=== PATIENT | male | born 1965 | race Caucasian/White ===

== ENCOUNTER 2019-07-19 17:16 | Inpatient (IN) | payer OTHER ==
[~2019-07-19] VITALS: Ht 182.9 cm; Wt 218.0 kg
[~2019-07-19 17:16] MED LIST: ACCUPRIL40 MG PO; ASPIRIN325 PO; AZITHROMYCIN 2250 MG PO; CARVEDILOL25 MG PO; CATAPRES0.2 MG PO; CATAPRESS3 TRANSDERM; CEFUROXIME250 MG PO; CLONIDINE0.1 PO; COUMADIN 2 MG TA2 M1 PO; COUMADIN 5 MG TA5 M1 PO; DEMADEX20 MG PO; DIGOXIN250 MCG PO; DULERA 200 MCG/13 GM INH; DUONEB 2.5-0.5 M3 ML INH; LASIX 20 MG TAB20 MG PO; LISINOPRIL20 MG PO; LOPRESSOR50 PO; MAXITROL EYE O3.5 GM OPHTHALMIC; METOPROLOL TAR100 MG PO; NORCO 10-325 T1 EACH PO; NORCO 5-325 TA1 EACH PO; PREDNISONE 10 M10 MG PO; PULMICORT0.5 MG/2 M INH; SYNTHROID100 MC1 PO; SYNTHROID100 MCG PO; VALACYCLOVIR1000 MG PO; XANAX1 MG PO; ZOLOFT 50 MG TA50 M1 PO
[2019-07-19 17:17] VITALS: BP 129/66
[2019-07-19 18:07] LABS: BE(vivo) -0.3 mmol/L (-2 to +3); PO2 77.7 mmHg (80.0-100.0); pH 7.373 (7.360-7.450); sO2 95.2 % (92.0-98.0)
[2019-07-19 18:09] LABS: HEMATOCRIT 30.8 % (42.0-52.0); HEMOGLOBIN 9.6 gm/dL (14.0-18.0); MCH 26.5 pg (26.0-34.0); MCHC 31.1 g/dL (28.0-37.0); MCV 85.3 fL (80.0-100.0); PLATELET COUNT 126 thou/uL (150-400); RBC 3.61 mil/uL (4.50-6.00); RDW 25.1 % (10.5-14.5); WBC 5.2 thou/uL (4.0-11.0)
[2019-07-19 18:19] LABS: ANION GAP 3 mmol/L (7-16); BUN 14 mg/dL (7-18); CALCIUM 8.9 mg/dL (8.5-10.1); CHLORIDE 106 mmol/L (98-107); CO2 32 mmol/L (21-32); CREATININE 0.9 mg/dL (0.7-1.3); GLUCOSE 120 mg/dL (74-106); POTASSIUM 4.5 mmol/L (3.5-5.1); SODIUM 141 mmol/L (136-145)
[2019-07-19 18:25] LABS: PROTIME 122.1 Seconds (9.3-11.4)
[2019-07-19 18:29] LABS: ALBUMIN 2.8 g/dL (3.4-5.0); SGOT 13 U/L (15-37); SGPT 17 U/L (30-65); TOTAL BILIRUBIN 0.9 mg/dL (<0.1-1.0); TOTAL PROTEIN 6.4 g/dL (6.4-8.2); TROPONIN-I <0.06 ng/mL (<0.06)
[2019-07-19 18:31] LABS: INR 11.9
[2019-07-19 18:41] LABS: ABSOLUTE NEUTROPHILS 4.5 thou/uL (1.4-8.2); ANISOCYTOSIS 1+
[2019-07-19 20:35] LABS: CHOLESTEROL 169 mg/dL (<200); HDL CHOLESTEROL 33 mg/dL (>40); LDL CHOLESTEROL 121 mg/dL (<100); TC:HDL 5.1 Ratio (Not establshd); TRIGLYCERIDE 77 mg/dL (<150); VLDL 15 mg/dL (<40)
[2019-07-19 21:55] VITALS: BP 106/83
[2019-07-19 22:16] VITALS: BP 106/83
[2019-07-19 22:50] VITALS: BP 147/95
[2019-07-20] VITALS (35 sets, daily range): BP systolic 94–150; BP diastolic 55–97
[2019-07-20 03:48] LABS: BE(vivo) -2.4 mmol/L (-2 to +3); HCO3 26.9 mmol/L (22.0-26.0); PCO2 68.7 mmHg (35.0-45.0); PO2 90.5 mmHg (80.0-100.0); sO2 94.9 % (92.0-98.0)
--- NOTE | 2019-07-20 04:15 | NUR ---
FOUND PATIENT ON CPAP SETTINGS WHILE ON V60. PATIENT WAS IN DISTRESS ONCE MOVED TO THE FLOOR, HE WAS PLACED ON BIPAP 18/8 RATE 10 AND 45%. CALL WAS PLACED TO ME THAT THEY HAD TO INCREASE THE FIO2 TO 80% AND WERE TRYING TO WEAN HIM DOWN. I FOUND THE PATIENT ON 60% AND GOT AN ABG AND THE FINDINGS PROMPTED A PULM CONSULT TO DR OVALLES WHO WANTS THE PATIENT MOVED TO THE ICU. WILL TRANSPORT PATIENT ON BIPAP TO THE UNIT AND CONTINUE TO MONITOR HIS STATUS.
--- NOTE | 2019-07-20 04:40 | NUR ---
Pt arrived ICU accompanied with 3 west staffs and RETAIL PRODUCT ADVISOR. He appears indistress. He is very tachypnic, RR in 40's. O2 sat >90% noted. ED staff is on the way to intubate him.
--- NOTE | 2019-07-20 05:20 | NUR ---
Pt is well tricia intubation procedure. CXR obtained. Waiting for confirmation of ETT placement. Rt will obtain ABG shortly.
--- NOTE | 2019-07-20 05:30 | NUR ---
Pt is hypothermic noted, warm blanket applied.
[2019-07-20 05:58] LABS: HEMATOCRIT 35.5 % (42.0-52.0); HEMOGLOBIN 10.8 gm/dL (14.0-18.0); MCH 26.3 pg (26.0-34.0); MCHC 30.5 g/dL (28.0-37.0); MCV 86.4 fL (80.0-100.0); RBC 4.1 mil/uL (4.50-6.00); RDW 25.5 % (10.5-14.5); WBC 6.6 thou/uL (4.0-11.0)
[2019-07-20 06:00] LABS: CALCIUM 8.8 mg/dL (8.5-10.1); POTASSIUM 4.3 mmol/L (3.5-5.1)
[2019-07-20 06:02] LABS: PROTIME 35.6 Seconds (9.3-11.4)
[2019-07-20 06:04] LABS: INR 3.5
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
[2019-07-20 08:51] LABS: BE(vivo) 0.9 mmol/L (-2 to +3); HCO3 28.7 mmol/L (22.0-26.0); PCO2 63.1 mmHg (35.0-45.0); sO2 98.5 % (92.0-98.0)
[2019-07-20 08:52] LABS: pH 7.276 (7.360-7.450)
--- NOTE | 2019-07-20 08:58 | NUR ---
Assumed care at 0700. RN with 5 staff ast to turn PT and clean. Asim contacted RN and stated they did not have a bariatric bed available at this time. RN will continue to search for a bariatric bed. PT was cleaned, brennon- care provided, and a slider sheet was placed underneath. PT was pulled up in bed to semi-montiel's position. Unable to turn due to PT and bed size. Mattress on lateral rotation. Fall precautions in place. RN performed sedation vacation at 0830. PT was able to open his eyes and follow commands. Propofol gtt was turned back on at 0845. RN will continue to monitor.
--- NOTE | 2019-07-20 11:35 | NUR ---
RN spoke with [facility] environmental marketing representative. He stated he was going to check [facility] for a bariactric bed and he would contact RN once he arrives, but at this time there are no available bariatric beds. RN will continue to monitor.
--- NOTE | 2019-07-20 12:08 | NUR ---
RN came into room to assess PT at 1158. PT appeared alert and uncomfortable. PT followed commands and shook his head yes when asked if he was uncomfortable. RN titrated propofol gtt up to 40 mcs/kg/min to increase comfort. Fall precautions in place. RN will continue to monitor.
[2019-07-20 14:26] LABS: URINE BILIRUBIN NEGATIVE (Negative); URINE BLOOD 3+ (Negative); URINE COLOR YELLOW; URINE GLUCOSE-RANDOM* NEGATIVE (Negative); URINE KETONES NEGATIVE (Negative); URINE LEUKOCYTES-REFLEX NEGATIVE (Negative); URINE NITRITE-REFLEX NEGATIVE (Negative); URINE PROTEIN (DIPSTICK) NEGATIVE (Negative); URINE SPECIFIC GRAVITY 1.015 (1.005-1.035)
[2019-07-20 14:28] LABS: URINE CLARITY CLOUDY
[2019-07-20 14:33] LABS: SQUAMOUS None Seen /LPF (0-3); URINE WBC-REFLEX 0-5 Rare /HPF (0-5)
[2019-07-20 14:34] LABS: URINE RBC >20 Many /HPF (0-2)
[2019-07-20 14:35] LABS: AMORPHOUS URATES Many /LPF (None Seen); CASTS None Seen /LPF (None Seen)
[2019-07-20 14:36] LABS: CALCIUM OXALATE 0-3 Few /LPF (None Seen)
--- NOTE | 2019-07-20 14:40 | NUR ---
RN called Marci Varma, PT's sister and designated contact, to get consent for a PICC line insertion at 1435. Marci stated that she was not aware that the PT was moved from retirement to hospital or that there were any health concerns. RN updated sister and notified her that the PT was admitted to ICU due to worsening shortness of breath, placed on the ventillator, and was being tested for covid-19. Marci verbalized understanding. RN asked sister if she would consent to a PICC line insertion for the PT in order to give medications that may irritate the vein if given through a peripheral IV. She stated yes. A second RN verified consent. Marci was given PT's passcode and room number. RN will continue to monitor.
--- NOTE | 2019-07-20 16:18 | NUR ---
CONSULTED TO PLACE A PICC FOR A PATIENT NEEDING ADDITIONAL ACCESS. ORDER AND CONSENT NOTED AND OBATAINED BY THE RN PLACEMENT. THE RIGHT UPPER ARM CEPHALIC WAS WIDLEY PATENT. A #5F TRIPLE LUMEN POWER PICC WAS PLACED PER HOSPITAL POLICY AFTER A BEDSIDE TIMEOUT WAS COMPLETED. THE PICC WAS TRIMMED TO 50CM AND ADVANCED WITHOUT DIFFICULTY. A STAT CHEST XRAY CONFIRMED PICC TIP POSITION AND LINE WAS RELEASED FOR USE
[2019-07-21] VITALS (58 sets, daily range): BP systolic 95–141; BP diastolic 53–87
[2019-07-21 05:24] LABS: BASOPHILS 0.1 % (0.0-2.0); HEMATOCRIT 29.5 % (42.0-52.0); HEMOGLOBIN 9.1 gm/dL (14.0-18.0); LYMPHOCYTES 4.7 % (24.0-44.0); MCH 26.5 pg (26.0-34.0); MCV 85.5 fL (80.0-100.0); MONOCYTES 5.7 % (1.0-8.0); PLATELET COUNT 140 thou/uL (150-400); POLYS 89.5 % (36.0-66.0); RBC 3.45 mil/uL (4.50-6.00); RDW 25.3 % (10.5-14.5); WBC 5.6 thou/uL (4.0-11.0)
[2019-07-21 05:32] LABS: INR 2.2; PROTIME 23.1 Seconds (9.3-11.4)
[2019-07-21 05:38] LABS: BE(vivo) 1.5 mmol/L (-2 to +3); HCO3 28.6 mmol/L (22.0-26.0); PCO2 57.8 mmHg (35.0-45.0); PO2 97.9 mmHg (80.0-100.0); pH 7.312 (7.360-7.450); sO2 96.7 % (92.0-98.0)
[2019-07-21 05:43] LABS: ALBUMIN 2.6 g/dL (3.4-5.0); ANION GAP 7 mmol/L (7-16); BUN 21 mg/dL (7-18); CALCIUM 8.7 mg/dL (8.5-10.1); CHLORIDE 107 mmol/L (98-107); CO2 30 mmol/L (21-32); CREATININE 0.9 mg/dL (0.7-1.3); GLUCOSE 154 mg/dL (74-106); MAGNESIUM 2.3 mg/dL (1.8-2.4); SGOT 14 U/L (15-37); SGPT 14 U/L (30-65); SODIUM 144 mmol/L (136-145); TROPONIN-I <0.06 ng/mL (<0.06)
[2019-07-21 05:45] LABS: POTASSIUM 4.4 mmol/L (3.5-5.1)
--- NOTE | 2019-07-21 06:00 | NUR ---
REMAINS INTUBATED AND SEDATED WITH VERSED GTT AT 7 MG AND FENTANYL at 100 mcg OPENS EYES TO NAME AND FOLLOWS SIMPLE COMMANDS. V PACED RATE 60 VSS BATHED. O2 SAT 96 % ON 70 % FIO2. PROGRESSING TOWARD GOALS. WILL CONT TO MONITOR.
[2019-07-21 06:03] LABS: ANISOCYTOSIS 2+; MICROCYTES 2+; PLATELET ESTIMATE NORMAL
--- NOTE | 2019-07-21 13:01 | EKG ---
[facility] [place] [address] ELECTROCARDIOGRAM REPORT Name: BAIRON MOTA Room #: 242-P ADM IN M.R.#: [id number] Admission: 07/19/19 Attend Phys: Otoniel Regalado MD Discharge: Date of : 63 Report #: [id number] THIS REPORT FOR: cc: Rafael Jarrett MD, Shyam MD Couchonnal, Luis F. 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 : 1965 Requested By: [place] Order Number: [id number] MD: Osvaldo Granda Measurements Intervals [place] Rate: 74 P: 0 CO: 166 QRS: 30 QRSD: 104 T: 85 QT: 406 QTc: 451 Interpretive Statements Ventricular-paced complexes No further rhythm analysis attempted due to paced rhythm Low voltage, precordial leads No previous ECG available for comparison Electronically Signed On 07-21-2019 13:00:19 CDT by Osvaldo Granda [email or web address] <ELECTRONICALLY SIGNED> By: Osvaldo Granda MD 07/21/19 1300 15 Osvaldo Granda MD /[facility]
[2019-07-22] VITALS (25 sets, daily range): BP systolic 112–175; BP diastolic 55–117
[2019-07-22 05:56] LABS: HEMATOCRIT 32.1 % (42.0-52.0); HEMOGLOBIN 10.1 gm/dL (14.0-18.0); MCH 26.4 pg (26.0-34.0); MCHC 31.3 g/dL (28.0-37.0); MCV 84.3 fL (80.0-100.0); RBC 3.81 mil/uL (4.50-6.00); WBC 7.2 thou/uL (4.0-11.0)
[2019-07-22 06:15] LABS: ALBUMIN 2.7 g/dL (3.4-5.0); CALCIUM 8.3 mg/dL (8.5-10.1); CREATININE 0.9 mg/dL (0.7-1.3); MAGNESIUM 2.3 mg/dL (1.8-2.4); POTASSIUM 4.1 mmol/L (3.5-5.1); TOTAL BILIRUBIN 1.1 mg/dL (<0.1-1.0); TOTAL PROTEIN 6.3 g/dL (6.4-8.2)
[2019-07-22 06:16] LABS: INR 2.9; PROTIME 28.8 Seconds (9.3-11.4)
--- NOTE | 2019-07-22 07:05 | NUR ---
Pt. is arousable and nods yes/no to questions. Cont. on fentanyl gtt. and versed gtt for sedation at a max dose. FIO2 per vent titrated down by RT from 80% at beginning of shift down to 60% this am. Chlorhexidine bath given. He has been repositioned prn for comfort otherwise on cont. lateral rotation per bariatric bed. John. soft wrist restraints in place. Clement intact and diuresed well. Slowly making progress towards care plan goals.
[2019-07-22 07:26] LABS: BE(vivo) 6.7 mmol/L (-2 to +3); HCO3 34.2 mmol/L (22.0-26.0); PO2 85.8 mmHg (80.0-100.0); pH 7.334 (7.360-7.450); sO2 95.6 % (92.0-98.0)
[2019-07-22 07:28] LABS: PCO2 65.8 mmHg (35.0-45.0)
--- NOTE | 2019-07-22 09:36 | NUR ---
Nutrition: Pt NPO x 3 days on the vent. REC initate enteral feeds of Vital AF to reach 70 mL/hr goal rate.
--- NOTE | 2019-07-22 11:46 | 2DMMODE ---
[facility] [place] [address] 2 D/M-MODE ECHOCARDIOGRAM Name: BAIRON MOTA Room #: 242-P ADM IN M.R.#: [id number] Admission: 07/19/19 Attend Phys: Amdaeo Wei MD Discharge: Date of : 63 Report #: [id number] THIS REPORT FOR: cc: Rafael Jarrett MD, Shyam MD Park, Jin S. MD ~ APPROVED REPORT Study performed: 07/22/2019 09:35:08 EXAM: Comprehensive 2D, Doppler, and color-flow Echocardiogram Patient Location: ICU Room #: 242 Status: routine BSA: 3.34 HR: 60 bpm BP: 133/91 mmHg Other Information Study Quality: Technically Difficult Technically limited study due to body habitus. Indications Congestive Heart Failure COPD Atrial Fibrillation Hypertension/HDD PPM 2D Dimensions RVDd: 51.88 mm IVSd: 13.84 (7-11mm) LVOT Diam: 20.16 (18-24mm) LVDd: 56.99 mm PWd: 14.29 (7-11mm) Ascending Ao: 32.89 (22-36mm) LVDs: 42.27 (25-40mm) Aortic Root: 29.95 mm Volumes Left Atrial Volume (Systole) Single Plane 4CH: 88.82 mL Single Plane 2CH: 97.62 mL LA ESV Index: 29.00 mL/m2 Aortic Valve [facility] [place] [address] 2 D/M-MODE ECHOCARDIOGRAM Name: BAIRON MOTA Room #: 242-P ADM IN M.R.#: [id number] Admission: 07/19/19 Attend Phys: Amadeo Wei MD Discharge: Date of : 63 Report #: [id number] Peak Channing.: 2.27 m/s AO Peak Gr.: 20.68 mmHg LVOT Max P.73 mmHg AO Mean Gr.: 11.41 mmHg LVOT Mean P.50 mmHg AO V2 Mean: 1.58 m/s LVOT Max V: 0.97 m/s AO V2 VTI: 49.74 cm LVOT Mean V: 0.77 m/s SAMY (VTI): 1.46 cm2 LVOT V1 VTI: 22.73 cm SAMY Vmax: 1.35 cm2 SV (LVOT): 72.48 mL Mitral Valve E/A Ratio: 2.4 MV Decel. Time: 179.39 ms MV E Max Channing.: 1.08 m/s MV A Channing.: 0.45 m/s MV PHT: 52.02 ms IVRT: 62.28 ms Pulmonary Valve PV Peak Channing.: 1.10 m/s PV Peak Gr.: 4.84 mmHg Tricuspid Valve TR Peak Channing.: 2.71 m/s RAP Estimate: 15.00 mmHg TR Peak Gr.: 29.27 mmHg PA Pressure: 44.00 mmHg Left Ventricle Left ventricle is at the upper limits of normal. Mild concentric left ventricular hypertrophy. Left ventricular systolic function is low-normal. LVEF is 50%. Transmitral Doppler flow pattern suggests restrictive physiology. Right Ventricle Right ventricle is dilated. The right ventricular systolic function is normal. Pacemaker lead is present in the right ventricle. Atria The left atrium size is normal. Right atrium is dilated. Aortic Valve Aortic valve is mildly calcified. Trace aortic regurgitation. Mild aortic stenosis. Calculated aortic valve area is 1.5 cm2 with maximum pressure gradient of 20.7 mmHg and mean pressure gradient of 11.4 mmHg. Mitral Valve The mitral valve is normal in structure. Mild mitral regurgitation. [facility] [address] [address] 2 D/M-MODE ECHOCARDIOGRAM Name: NAKULBAIRON Sarah Room #: 242-P [facility] IN .R.#: [id number] Admission: 07/19/19 Attend Phys: Amadeo Wei MD Discharge: Date of : 63 Report #: [id number] No evidence of mitral valve stenosis. Tricuspid Valve The tricuspid valve is normal in structure. Mild to moderate tricuspid regurgitation. PAP is estimated at 40 mmHg. Pulmonic Valve The pulmonary valve is normal in structure. Mild pulmonic regurgitation. Great Vessels The aortic root is normal in size. Pericardium There is no pericardial effusion. <Conclusion> Left ventricle is at the upper limits of normal. Left ventricular systolic function is low-normal. Transmitral Doppler flow pattern suggests restrictive physiology. Pacemaker lead is present in the right ventricle. Right atrium is dilated. Mild aortic stenosis. Mild to moderate tricuspid regurgitation. PAP is estimated at 40 mmHg. Mild mitral regurgitation. <ELECTRONICALLY SIGNED> By: Jamil Marshall MD 07/22/19 1144 1144 1144 Jamil Marshall MD /INF
--- NOTE | 2019-07-22 15:35 | NUR ---
INITIAL ASSESSMENT: Consult received. TORRIE reviewed chart and spoke with attending physician. Pt was admitted from [facility] due to CHF exacerbation/respiratory failure. Pt tested negative for COVID-19. Pt in ICU and is intubated andn sedated on the ventilator. TORRIE spoke with pt's sister, Marci, via phone. Introduced role of TORRIE. Pt has been at [facility] since July 03 of this year. Prior to that, pt was hospitalized at [facility]. Pt has been in and out of facilities over the past year. Pt has been at [facility] and at [facility]. Pt normally lives at home with his mother. Pt has been able to walk short distances with a cane or walker. Pt's sister states they do not want pt to return to [facility] if possible. Family is unhappy with lack of communication and the care/therapy pt has received. Pt's sister gave consent for SW to keep [facility] updated as needed, but would like to consider alternate facilities upon discharge. TORRIE discussed with UR RN to assist with verifying pt's available Medicare acute days, as pt may need LTAC/acute rehab. TORRIE is following to assist as needed with discharge planning.
--- NOTE | 2019-07-22 18:03 | NUR ---
PT WILL OPEN EYES AND FOLLOW SIMPLE COMMANDS. NODS TO YES/NO QUESTIONS. VERSED GTT WEANED OFF TODAY AND PT STARTED ON PRECEDEX. REMAINS ON FENT GTT. IV LASIX GIVEN AND PT DIURESED 3500ML URINE TODAY. CONTINUES TO HAVE COARSE CRACKLES THROUGHOUT. REMAINS ON VENT WITH SETTING UNCHANGED TODAY. ABG'S DONE THIS AM AND RESULTS GIVEN TO DR ERNST. SPOKE WITH PT'S MOM BY PHONE THIS AFTERNOON AND UPDATED HER. WILL CONTINUE TO MONITOR PATIENT.
[2019-07-23] VITALS (36 sets, daily range): BP systolic 98–163; BP diastolic 66–114
[2019-07-23 04:48] LABS: BE(vivo) 4.1 mmol/L (-2 to +3); HCO3 30.7 mmol/L (22.0-26.0); PCO2 55.9 mmHg (35.0-45.0); PO2 89.1 mmHg (80.0-100.0); pH 7.358 (7.360-7.450); sO2 96.3 % (92.0-98.0)
[2019-07-23 06:02] LABS: ABSOLUTE NEUTROPHILS 5.4 thou/uL (1.4-8.2); BASOPHILS 0.3 % (0.0-2.0); HEMATOCRIT 35.5 % (42.0-52.0); HEMOGLOBIN 11.1 gm/dL (14.0-18.0); MCH 26.4 pg (26.0-34.0); MCHC 31.2 g/dL (28.0-37.0); MCV 84.6 fL (80.0-100.0); MONOCYTES 5.6 % (1.0-8.0); PLATELET COUNT 138 thou/uL (150-400); POLYS 89.1 % (36.0-66.0); RBC 4.19 mil/uL (4.50-6.00); RDW 24.7 % (10.5-14.5)
[2019-07-23 06:21] LABS: ALBUMIN 2.8 g/dL (3.4-5.0); CALCIUM 8.3 mg/dL (8.5-10.1); POTASSIUM 4.1 mmol/L (3.5-5.1); TOTAL BILIRUBIN 0.7 mg/dL (<0.1-1.0); TOTAL PROTEIN 6.5 g/dL (6.4-8.2)
[2019-07-23 06:23] LABS: INR 2.7; PROTIME 27.9 Seconds (9.3-11.4)
--- NOTE | 2019-07-23 07:29 | NUR ---
Pt remains sedated on vent. Precedex gtt at 1 mcg/kg/hr, Fentanyl gtt at 100 mcg/hr and pt rests comfortably. Awakens easily and nods head/follows commands. AM ABG noted. Pt had been on Versed gtt during day, but changed over to precedex and noted to have increasing BP. BUTT TRIMMER made aware and medicated per EMAR with desired effect. This a.m. BP noted to be elevated again. Clement to DD w/ marginal UOP. Remains VPaced per tele. Slowly progressing towards goals.
--- NOTE | 2019-07-23 11:37 | NUR ---
TORRIE received voice message from pt's mother, Marleni. TORRIE returned call. Introduced role of TORRIE. Lengthy discussion with pt's mother regarding pt's history of placement since May 13, 2018. Pt has been to [facility] 3 times, [facility] once, [facility], [facility], [facility] and [facility]. Pt normally lives at home with his mother. Pt's mother confirms that pt is normally ambulatory with a cane or walker. 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 Pt has a trilogy at home and uses about 3L of O2. Pt has used [facility] in the past. Pt's PCP is through [facility]. Pt's mother states they are not happy with care and communication with [facility] and would like to consider alternate placement upon discharge. Pt's mother states that pt is out of all of his Medicare acute days (full-coverage, co-pay days and [employer] [place] Days). Discussed with RUFINA RN. TORRIE discussed case with attending physician. Pt remains intubated and sedated. Pt is not ready for vent weaning at this time. TORRIE is following to assist as needed with discharge planning.
--- NOTE | 2019-07-23 18:39 | NUR ---
ASSUMED CARE AT 0700, ASSESSMENT AND VITAL SIGNS COMPLETED PER ICU PROTOCOL. DR. ERNST ROUNDED THIS AM, NO NEW ORDERS RECEIVED. DR. DIALLO ROUNDED THIS AM, NEW ORDERS RECEIVED. DR. STEVENS ROUNDED THIS AM, NEW ORDERS RECEIVED.
[2019-07-24] VITALS (22 sets, daily range): BP systolic 108–179; BP diastolic 75–109
[2019-07-24 05:03] LABS: HEMATOCRIT 36.5 % (42.0-52.0); HEMOGLOBIN 11.3 gm/dL (14.0-18.0); MCH 26.4 pg (26.0-34.0); MCHC 30.9 g/dL (28.0-37.0); MCV 85.3 fL (80.0-100.0); PLATELET COUNT 174 thou/uL (150-400); RBC 4.28 mil/uL (4.50-6.00); RDW 25.2 % (10.5-14.5); WBC 10.3 thou/uL (4.0-11.0)
[2019-07-24 05:28] LABS: ALBUMIN 2.9 g/dL (3.4-5.0); CALCIUM 8.2 mg/dL (8.5-10.1); MAGNESIUM 2.2 mg/dL (1.8-2.4); POTASSIUM 3.5 mmol/L (3.5-5.1); TOTAL BILIRUBIN 1.1 mg/dL (<0.1-1.0); TOTAL PROTEIN 6.6 g/dL (6.4-8.2)
[2019-07-24 05:33] LABS: BE(vivo) 6.6 mmol/L (-2 to +3); HCO3 34.7 mmol/L (22.0-26.0); PO2 64.8 mmHg (80.0-100.0)
[2019-07-24 05:34] LABS: PCO2 70.6 mmHg (35.0-45.0)
--- NOTE | 2019-07-24 07:16 | NUR ---
Assumed patient care at 1900. Patient remains on the ventilator with Fentanyl and Precedex infusing. Propofol added for sedation. Patient updated on care plan.
[2019-07-24 08:44] LABS: ABSOLUTE NEUTROPHILS 8.4 thou/uL (1.4-8.2); ATYPICAL LYMPHS 5 %
[2019-07-24 08:45] LABS: ANISOCYTOSIS 2+; OVALOCYTES FEW; POIKILOCYTOSIS SLIGHT
--- NOTE | 2019-07-24 16:09 | NUR ---
SW reviewed chart and spoke with attending physician. Pt remains intubated and sedated. Vent weaning trials have not been initiated at this time. Following to assist as needed with discharge planning.
--- NOTE | 2019-07-24 17:15 | NUR ---
PT REMAINS ON THE VENT. FOLLOWS ALL COMMANDS WIGGLES TOES SQUEEZES HANDS ON SEDATION. LUNGS ARE COARSE TO DIMINISHED. V-PACED ON THE MONITOR. ROOT TO DD WITH CLEAR YELLOW URINE. OG TO INTERMITENTLY LOW SUCTION. SCDS ON BILATERAL. PT HAS 2-3 PLUS EDEMA GENERALIZED NOTED. REMAINS IN RESTRAINTS. EXPLAIN TO PT WHY HE IS IN THE HOSPITAL HE IS ASKING ME WHY. NO ISSUES OR CONCERNS NOTED. WILL CONTINUE TO PROGRESSS TOWARDS GOALS.
[2019-07-25] VITALS (25 sets, daily range): BP systolic 125–180; BP diastolic 81–114
[2019-07-25 05:34] LABS: HEMATOCRIT 36.6 % (42.0-52.0); HEMOGLOBIN 11.6 gm/dL (14.0-18.0); MCH 26.1 pg (26.0-34.0); MCHC 31.7 g/dL (28.0-37.0); MCV 82.2 fL (80.0-100.0); RBC 4.45 mil/uL (4.50-6.00); WBC 7.8 thou/uL (4.0-11.0)
[2019-07-25 06:01] LABS: CALCIUM 8.7 mg/dL (8.5-10.1); CREATININE 0.8 mg/dL (0.7-1.3); MAGNESIUM 2.1 mg/dL (1.8-2.4); POTASSIUM 3.2 mmol/L (3.5-5.1)
--- NOTE | 2019-07-25 10:09 | NUR ---
0900- CUFF WAS LEAKING. BONNY RT CAME AND PROVIDED MORE AIR IN THE CUFF. VOLUMES ELEVATED BACK TO THE 400S. 15- AIR LEAK NOTED AGAIN. RT CALLED. MV LOW, O2 SAT 88%. TV's 100. 09- DR. ERNST MESSAGED, THEN STAT OVERHEAD PAGE. 929- RT'S, RN'S, DR. ERNST IN ROOM FOR COOK CATHETER EXCHANGE. PARALYTIC GIVEN PATIENT BITING ON TUBING. 45- TUBE WAS SUCCESSFULLY EXCHANGED PER DR. ERNST. ASCULTATION CONFIRMED PLACEMENT. 1000- O2 SAT 99%, HEART RATE 60, VPACED, RR 20, PT CALM AND RESTING AT THIS TIME. GTT'S FOR SEDATION DOCUMENTED. PT BITES DOWN HARD ON TUBE AND BECOMES RESTLESS, ATTEMPTING TO PULL AT LINES WHEN SEDATION DECREASED.
[2019-07-25 15:04] LABS: CALCIUM 9.1 mg/dL (8.5-10.1); CREATININE 0.9 mg/dL (0.7-1.3); POTASSIUM 3.4 mmol/L (3.5-5.1)
--- NOTE | 2019-07-25 19:54 | NUR ---
PATIENT NOT PROGRESSING TOWARDS PLAN OF CARE EVIDENCED BY PATIENT CONTINUED NEED FOR PEEP 10, FIO2 70%. PATIENT WITH TURN REQUIRES INCREASED AMOUNT OF FIO2 O2 SATURATION DECREASES TO 84%. HE IS ABLE TO BITE ON THE ET TUBE WITH HIS BACK TEETH AND OCCLUDE AIRWAY, WITH SEDATION DOCUMENTED. PLAN OF CARE IS TO CONTINUE TO MONITOR PATIENT FIO2 REQUIREMENTS, WEANING ABILITY PER PHYSICIAN, STARTED NUTRITION, POSSIBLE CONSTIPATION. NURSE TO CONTINUE TO MONITOR PATIENT STATUS.
[2019-07-26] VITALS (21 sets, daily range): BP systolic 104–149; BP diastolic 65–89
[2019-07-26 06:08] LABS: HEMATOCRIT 38.5 % (42.0-52.0); HEMOGLOBIN 12.3 gm/dL (14.0-18.0); MCH 26.1 pg (26.0-34.0); MCHC 31.9 g/dL (28.0-37.0); RBC 4.7 mil/uL (4.50-6.00); RDW 24.2 % (10.5-14.5)
[2019-07-26 06:25] LABS: CALCIUM 8.4 mg/dL (8.5-10.1); CREATININE 0.9 mg/dL (0.7-1.3); MAGNESIUM 1.8 mg/dL (1.8-2.4); POTASSIUM 3.5 mmol/L (3.5-5.1)
--- NOTE | 2019-07-26 08:29 | NUR ---
PT INTUBATED AND ON VENT. SEDATED WITH FENTANYL, PRECEDEX, AND PROPOFOL GTTS. WHEN SEDATION LESSENED, PT BECOMES RESTLESS AND BITES ON ET TUBE, RESULTING IN DROPPING O2 SATURATION. SEDATION INCREASED. PT'S O2 SATURATION 90-92% OVERNIGHT ON 70% FIO2. PT IS NOT PROGRESSING. WILL CONTINUE TO MONITOR.
--- NOTE | 2019-07-26 11:45 | NUR ---
DR ERNST AT BEDSIDE. REQUESTED TO HAVE MATERIALS SET UP FOR ARTLINE PLACEMENT AN CVP MONITORING. RIGHT RADIAL MARILYN PLACED. PT ON FLOWTRACK MONITOR. CVP MONITOR INITIATED.
[2019-07-26 13:10] LABS: BE(vivo) 8.7 mmol/L (-2 to +3); HCO3 32.4 mmol/L (22.0-26.0); PCO2 41.1 mmHg (35.0-45.0); sO2 94.3 % (92.0-98.0)
--- NOTE | 2019-07-26 15:10 | NUR ---
TORRIE reviewed chart and spoke with attending physician. Pt remains intubated and sedated. Pt has a hx of trach placement in the past. TORRIE left voice message for pt's Mother, Marleni, to provide update. TORRIE spoke with pt's sister, Marci, via phone. Pt's family was able to get pt's personal belongings from [facility]. Pt's family is hopeful for alternate placement at time of disharge. Should pt need trach/peg placement, LTAC may be an option, as pt is out of acute Medicare days. TORRIE is following to assist as needed with discharge planning.
--- NOTE | 2019-07-26 16:32 | NUR ---
PT'S MOM ALMA MOTA LEFT MESSAGE ON PHONE RETURNING CALL EARLIER FROM TORRIE. I CALLED HER BACK AND NSWERED HER QUESTIONS. SHE WILL CHECK IN WITH THE NURING STAFF LATER TO GET A CONDITION UPDATE FROM NURSING STAFF WELL.
[2019-07-26 18:24] LABS: MAGNESIUM 1.8 mg/dL (1.8-2.4); POTASSIUM 3.2 mmol/L (3.5-5.1)
--- NOTE | 2019-07-26 19:34 | NUR ---
REMAINS INTUBATED ON VENT. SEE CHANGES TO VENT SETTINGS, PEEP INCREASED TO 12. ON 100% FIO2 TO MAINTAIN SATS IN LOW 90'S. ORDERS TO SWAB FOR COVID. PLACED ON ENHANCED PRECAUTIONS. REPEAT MAG AND POTASSIUM DRAWN. MAG 1.8, k+ 3.5 - BEING REPLACED PER ELECTROLYTE PROTOCOL.
[2019-07-27] VITALS (15 sets, daily range): BP systolic 102–173; BP diastolic 67–99
[2019-07-27 01:38] LABS: MAGNESIUM 2.2 mg/dL (1.8-2.4); POTASSIUM 3.4 mmol/L (3.5-5.1)
[2019-07-27 04:40] LABS: HCO3 30.2 mmol/L (22.0-26.0); PCO2 41.9 mmHg (35.0-45.0); PO2 82.2 mmHg (80.0-100.0); pH 7.475 (7.360-7.450); sO2 96.7 % (92.0-98.0)
--- NOTE | 2019-07-27 05:10 | NUR ---
NO SIGNIFICANT CHANGES OVERNIGHT. PT REMAINS INTUBATED AND ON VENT. VENT WAS ON 100% INITIALLY, BUT WAS WEANED DOWN TO 90% AN HOUR AGO. O2 SATURATION NOW 95%. BP ELEVATED THIS MORNING, HYDRALAZINE GIVEN AND BP NOW WITHIN NORMAL LIMITS. SEE DOCUMENTATION FOR ALL VALUES BEING MONITORED. PT NOT TOLERATING TUBE FEEDING; PT CONTINUES TO HAVE HIGH RESIDUALS. TUBE FEEDING HELD MOST OF THE NIGHT, AND WAS RESTARTED AT 0400 WHEN RESIDUAL WAS LOWER. PT HAS SHOWN MINIMAL PROGRESSION OVER NIGHT. WILL CONTINUE TO MONITOR.
[2019-07-27 05:55] LABS: HEMATOCRIT 40.2 % (42.0-52.0); HEMOGLOBIN 12.7 gm/dL (14.0-18.0); MCH 25.7 pg (26.0-34.0); MCHC 31.5 g/dL (28.0-37.0); MCV 81.5 fL (80.0-100.0); PLATELET COUNT 163 thou/uL (150-400); RBC 4.93 mil/uL (4.50-6.00); RDW 24.4 % (10.5-14.5); WBC 9.1 thou/uL (4.0-11.0)
[2019-07-27 06:20] LABS: CALCIUM 8.9 mg/dL (8.5-10.1); CREATININE 0.9 mg/dL (0.7-1.3); MAGNESIUM 2.1 mg/dL (1.8-2.4); POTASSIUM 3.6 mmol/L (3.5-5.1); TOTAL BILIRUBIN 1.1 mg/dL (<0.1-1.0); TOTAL PROTEIN 6.9 g/dL (6.4-8.2)
[2019-07-27 10:15] LABS: ABSOLUTE NEUTROPHILS 7.6 thou/uL (1.4-8.2)
[2019-07-27 10:17] LABS: ANISOCYTOSIS 3+; TEARDROPS 1+
[2019-07-27 10:18] LABS: MACROCYTES 1+; MICROCYTES 1+
--- NOTE | 2019-07-27 18:00 | NUR ---
TITRATED DOWN TO 70% FIO2, TOLERATING WITH SEDATION. FENTANYL GTT DC'D WHEN INFUSED THEN STARTED DILAUDID/HYDROMORPHONE GTT AT 0.2MG/HR FOR CONTROL OF DISCOMFORT WHILE ON VENT. RECORDS RECEIVED FROM [place] FROM THREE OF SIX PT HOSPITALIZATIONS LAST YEAR. SPOKE WITH ABISAI, PT DESIGNATED WET PAN OPERATOR AND SISTER. UPDATED HER ON PT CONDITION- HIS MINIMAL PROGRESS WITH DECREASE IN FIO2 AND LARGE AMOUNT OF URINE OUTPUT IN RESPONSE TO LASIX.
[2019-07-28] VITALS (21 sets, daily range): BP systolic 85–172; BP diastolic 53–106
[2019-07-28 05:15] LABS: BE(vivo) 3.7 mmol/L (-2 to +3); HCO3 27.4 mmol/L (22.0-26.0); PCO2 38.3 mmHg (35.0-45.0); PO2 73.7 mmHg (80.0-100.0); pH 7.473 (7.360-7.450); sO2 95.7 % (92.0-98.0)
[2019-07-28 05:55] LABS: ALBUMIN 2.9 g/dL (3.4-5.0); CALCIUM 8.5 mg/dL (8.5-10.1); CREATININE 0.8 mg/dL (0.7-1.3); MAGNESIUM 1.9 mg/dL (1.8-2.4); POTASSIUM 3.5 mmol/L (3.5-5.1); TOTAL BILIRUBIN 0.9 mg/dL (<0.1-1.0); TOTAL PROTEIN 6.8 g/dL (6.4-8.2)
[2019-07-28 06:43] LABS: HEMATOCRIT 40.4 % (42.0-52.0); HEMOGLOBIN 12.9 gm/dL (14.0-18.0); MCH 26.1 pg (26.0-34.0); MCHC 31.9 g/dL (28.0-37.0); MCV 81.7 fL (80.0-100.0); PLATELET COUNT 157 thou/uL (150-400); RBC 4.94 mil/uL (4.50-6.00); RDW 23.7 % (10.5-14.5); WBC 7.7 thou/uL (4.0-11.0)
--- NOTE | 2019-07-28 07:30 | NUR ---
NO CHANGES OVERNIGHT. REMAINS INTUBATED AND ON VENT. FIO2 STAYED AT 70% THROUGHOUT THE NIGHT. IMPROVEMENT IN EDEMA, PT CONTINUES TO DIURESIS. TALKED WITH PT'S MOTHER; SHE ASKED IF ALBUTEROL COULD BE STOPPED, SHE SAYS IT CAUSES HIM TO BECOME MORE CONGESTED. THIS WAS PASSED ALONG TO DAY SHIFT RN TO DISCUSS WITH CARTRIDGE LOADING OPERATOR TODAY. PT IS STABLE, AND IS SHOWING MINIMAL PROGRESSION TOWARDS GOALS. WILL CONTINUE TO MONITOR.
[2019-07-28 10:16] LABS: ABSOLUTE NEUTROPHILS 6.9 thou/uL (1.4-8.2)
[2019-07-28 10:18] LABS: OVALOCYTES FEW; TEARDROPS FEW
[2019-07-28 10:19] LABS: POIKILOCYTOSIS 1+
--- NOTE | 2019-07-28 13:35 | NUR ---
PATIENT DIURESED 3575 ML VIA ROOT CATHETER BY 1300. PATIENT REMAINED ON SEDATION MEDS PER ORDERS. MEDICATIONS TITRATED BASED ON PATIENT SEDATION LEVEL AND VITALS. PATIENT BLOOD PRESSURE AND MAP CONTINUED TO DECREASE THROUGHOUT SHIFT. SOFTWARE DEVELOPMENT ANALYST PAGED AND NOTIFIED OF PATIENT STATUS. NEW ORDERS RECEIVED AND IMPLEMENTED. PATIENT VITALS IMPROVING WITH NEW ORDERS IMPLEMENTED. PATIENT HAS CONTINUOUS MONITORING IN PLACE ALONG WITH FREQUENT OBSERVATION. PATIENT ABLE TO OPEN EYES, NOD YES/NO, SQUEEZE HANDS AND FOLLOW SIMPLE COMMANDS WHEN SEDATION LIGHTENED. HOWEVER, PATIENT BEGINS TO BITE ON ET TUBE AND PULL ON RESTRAINTS WHEN SEDATION LIGHTENED. FOLLOWS COMMANDS BUT NEEDS FREQUENT REDIRECTION. PATIENT PROGRESSING TOWARDS GOALS FOR DISCHARGE.
[2019-07-28 15:07] LABS: ADENOVIRUS Negative (Negative); INFLUENZA A Negative (Negative); INFLUENZA B Negative (Negative); METAPNEUMOVIRUS Negative (Negative); PARAINFLUENZA 1 Negative (Negative); PARAINFLUENZA 2 Negative (Negative); PARAINFLUENZA 3 Negative (Negative); RHINOVIRUS Positive (Negative); RSV A Negative (Negative); RSV B Negative (Negative)
[2019-07-28 16:37] LABS: MAGNESIUM 1.9 mg/dL (1.8-2.4); PHOSPHORUS 3.2 mg/dL (2.5-4.9); POTASSIUM 3.5 mmol/L (3.5-5.1)
[2019-07-29] VITALS (23 sets, daily range): BP systolic 94–128; BP diastolic 57–80
[2019-07-29 04:59] LABS: HEMATOCRIT 38.5 % (42.0-52.0); MCH 25.8 pg (26.0-34.0); MCHC 31.2 g/dL (28.0-37.0); MCV 82.7 fL (80.0-100.0); RBC 4.65 mil/uL (4.50-6.00); RDW 23.7 % (10.5-14.5); WBC 11.4 thou/uL (4.0-11.0)
[2019-07-29 05:11] LABS: CALCIUM 8.4 mg/dL (8.5-10.1); CREATININE 0.8 mg/dL (0.7-1.3); MAGNESIUM 1.9 mg/dL (1.8-2.4); POTASSIUM 3.4 mmol/L (3.5-5.1)
--- NOTE | 2019-07-29 05:36 | NUR ---
Assumed patient care at 2300. Patient remains on the ventilator and is sedated. Patient remained stable throughout this shift and no acute events occurred.
--- NOTE | 2019-07-29 16:13 | NUR ---
SW reviewed chart and spoke with attending physician. Pt remains intubated and sedated. Repeat COVID-19 test is negative. SW is following to assist as needed with discharge planning.
--- NOTE | 2019-07-29 16:44 | NUR ---
PT CONTINUES TO DIURES. VENT SETTINGS UNCHANGED. PT ON SEDATION BUT WILL STILL FOLLOW COMMANDS. HAD TO START DOPAMINE GTT DUE TO HYPOTENSION ON MONITOR. NO BM TODAY. ULTRASOUND CAME TO BEDSIDE TO DO A THORACENTESIS BUT MD DECIDED AGAINST PROCEDURE DUE TO INSUFFICIENT FLUID VOLUME IN CHEST CAVITY. PT HAS CONTINUOUS MONITORING IN PLACE ALONG WITH FREQUENT OBSERVATION. FOLLOW COMMANDS BUT NEEDS FREQUENT REDIRECTION. PROGRESSING TOWARDS POC. WILL CONTINUE TO MONITOR.
[2019-07-30] VITALS (26 sets, daily range): BP systolic 76–157; BP diastolic 41–101
[2019-07-30 05:57] LABS: HEMATOCRIT 39.1 % (42.0-52.0); HEMOGLOBIN 12.6 gm/dL (14.0-18.0); MCH 26.3 pg (26.0-34.0); MCHC 32.1 g/dL (28.0-37.0); MCV 81.8 fL (80.0-100.0); RBC 4.78 mil/uL (4.50-6.00); RDW 23.7 % (10.5-14.5); WBC 9.6 thou/uL (4.0-11.0)
[2019-07-30 06:06] LABS: CALCIUM 8.6 mg/dL (8.5-10.1); CREATININE 0.7 mg/dL (0.7-1.3); MAGNESIUM 1.9 mg/dL (1.8-2.4); POTASSIUM 3.4 mmol/L (3.5-5.1)
--- NOTE | 2019-07-30 07:26 | NUR ---
SEDATION VACATION AT 1930; PT BECAME AGITATED, WAS PULLING RIGHT ARM TOWARDS SELF, WHEN THIS RN TRIED TO HOLD HIS HAND IN PLACE, HE SQUEEZED MY HANDS REALLT TIGHT. PT SETTLES WITH REASSURANCE AND INCREASED SEDATION. PT HAD ABOUT 2LITERS U/O THIS SHIFT. DOPAMIN TITRATED OFF THIS SHIFT PT HR AND BP STABILIZED. PT REQURED PROPOFOL DRIP ABOUT Q1 HR. PT ON PRECEDEX AND DILAUDID GTT. PT IS PROFRESSING TOWARDS POC GOALS. WILL CONTINUE TO MONITOR.
--- NOTE | 2019-07-30 10:03 | NUR ---
Nutrition: Propofol needs significantly reduced. REC increase tube feeds as tolerated to goal rate of 70 mL/hr to meet 80-100% of needs.
--- NOTE | 2019-07-30 14:45 | NUR ---
ASSUMED CARE AT 0700, ASSESSMENT AND VITAL SIGNS COMPLETED PER ICU PROTOCOL. DR. ERNST ROUNDED THIS AM, NEW ORDERS RECEIVED AND EXECUTED. DR. DIALLO ROUNDED THIS AM. DR. EDGE ROUNDED THIS AM. DR. ERNST PAGED AND NOTIFIED OF HYPOTENSION, NEW ORDERS RECEIVED AND EXECUTED.
--- NOTE | 2019-07-30 15:57 | NUR ---
TORRIE reviewed chart and spoke with attending physician. Pt remains intubated and sedated. Pt may need a bronch per pulm. Pt is on IV steroids/IV lasix/IV abx. TORRIE left voice message for pt's mother, Marleni, to provide update. TORRIE is following to assist as needed with discharge planning.
[2019-07-31] VITALS (7 sets, daily range): BP systolic 103–146; BP diastolic 71–88
[2019-07-31 05:00] LABS: BE(vivo) 0.6 mmol/L (-2 to +3); PCO2 34.4 mmHg (35.0-45.0); PO2 86.7 mmHg (80.0-100.0); pH 7.461 (7.360-7.450); sO2 97.1 % (92.0-98.0)
[2019-07-31 05:16] LABS: HEMATOCRIT 37.4 % (42.0-52.0); HEMOGLOBIN 12.1 gm/dL (14.0-18.0); MCH 26.4 pg (26.0-34.0); MCHC 32.3 g/dL (28.0-37.0); MCV 81.6 fL (80.0-100.0); PLATELET COUNT 135 thou/uL (150-400); RBC 4.58 mil/uL (4.50-6.00); RDW 24.1 % (10.5-14.5); WBC 7.5 thou/uL (4.0-11.0)
[2019-07-31 05:26] LABS: ALBUMIN 2.8 g/dL (3.4-5.0); CALCIUM 8.5 mg/dL (8.5-10.1); CREATININE 0.6 mg/dL (0.7-1.3); POTASSIUM 3.5 mmol/L (3.5-5.1); TOTAL BILIRUBIN 0.7 mg/dL (<0.1-1.0); TOTAL PROTEIN 6.3 g/dL (6.4-8.2)
[2019-07-31 07:17] LABS: ABSOLUTE NEUTROPHILS 6.5 thou/uL (1.4-8.2); METAMYELOCYTES 3 %; MYELOCYTES 1 %
[2019-07-31 07:18] LABS: ANISOCYTOSIS 3+; MICROCYTES 1+
--- NOTE | 2019-07-31 08:01 | NUR ---
PT FOLLOWING COMMANDS. BRONCHOCOPY DONE BY DR. ERNST AT BEDSIDE YESTERDAY AT 2200. PT OFF LEVOPHED. CHART CHECK. REPORT GIVEN TO PRATIMA DORSEY. PT PROGRESSING TOWARDS GOALS. CONTINUE TO MONITOR.
--- NOTE | 2019-07-31 18:26 | NUR ---
ASSESSMENTS AND INTERVENTIONS DOCCUMENTED. NO MAJOR CHANGES THROUGH OUT SHIFT. PATIENT STARTED ON A BOWEL REGMINE. CONSULTS PLACED TO DR. LEA FOR TRACH AND PEG PLACEMENT. SISTER CALLING AND UPDATED AND EDUCATED ABOUT POC. PATIENT FOLLOWING COMMANDS AND OPENING EYES SPONTANEOUSLY WITH SEDATION. PATIENT NOT REACHING GOALS AT THIS TIME. PATIENT IS STILL REQUIRING PEEP OF 12. AND INCREASED O2 DEMANDS.
[2019-08-01] VITALS (13 sets, daily range): BP systolic 66–172; BP diastolic 36–103
[2019-08-01 05:33] LABS: HEMATOCRIT 38.8 % (42.0-52.0); HEMOGLOBIN 12.2 gm/dL (14.0-18.0); MCHC 31.5 g/dL (28.0-37.0); MCV 82.7 fL (80.0-100.0); RBC 4.69 mil/uL (4.50-6.00); RDW 23.8 % (10.5-14.5); WBC 8.1 thou/uL (4.0-11.0)
[2019-08-01 05:47] LABS: CALCIUM 8.5 mg/dL (8.5-10.1); CREATININE 0.5 mg/dL (0.7-1.3); POTASSIUM 3.6 mmol/L (3.5-5.1)
--- NOTE | 2019-08-01 06:44 | NUR ---
PT FOLLOWING COMMANDS. TOLERATING TUBE FEED. NO BM. CHART CHECK. CONTINUE TO MONITOR. PT NOT PROGRESSING TOWARDS GOALS.
[2019-08-01 08:42] LABS: INR 1.2
[2019-08-01 09:30] LABS: BE(vivo) -0.5 mmol/L (-2 to +3); HCO3 26.3 mmol/L (22.0-26.0); PO2 81.4 mmHg (80.0-100.0); pH 7.314 (7.360-7.450); sO2 94.9 % (92.0-98.0)
--- NOTE | 2019-08-01 15:31 | NUR ---
PT IS AWAKE AT TIMES. FOLLOWS COMMANDS WIGGLES TOES SQUEZZES HANDS. LUNGS ARE COARSE TO DIMINISHED THROUGHOUT. 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 VITAL AF TOLERATING . ROOT TO DD WITH LASIX DAILY. RIGHT ART LINE IN PLACE. ON PRECEDEX, PROPOFOL, AND DILAUDID INFUSING FOR SEDATION. REMAINS COMFORTABLE. REMAINS ON THE VENT. DR. LEA CONSULTED PT THIS AM FOR TRACH AND PEG THIS AM. WILL CONTINUE ONGOING NURSING CARE
--- NOTE | 2019-08-01 15:39 | NUR ---
SW reviewed chart and spoke with attending physician. Surgery consulted for trach/peg placement. Pt's sister is agreeable with plan. SW spoke with pt's sister via phone to provide update. SW discussed post-acute placement after surgery and when pt is medically stable. SW provided options for LTAC. Pt has been to [facility] in the past. [facility] is not accepting [place] pts at this time. Pt would need to use his [place]-Medicaid, as he has exhausted his Medicare acute days. SW discussed option for [facility] as well. Pt's sister interested in either [facility] or [facility]. TOR[facility]E contacted [facility] liaison to see if they are able to accept [place] pts in their LTAC. Awaiting input at this time. TORRIE is following to assist as needed with discharge planning.
[2019-08-02] VITALS: BP 103/61
[2019-08-02 04:00] VITALS: BP 126/78
[2019-08-02 05:52] LABS: HEMATOCRIT 37.7 % (42.0-52.0); HEMOGLOBIN 11.9 gm/dL (14.0-18.0); MCH 26.1 pg (26.0-34.0); MCHC 31.6 g/dL (28.0-37.0); MCV 82.6 fL (80.0-100.0); RBC 4.57 mil/uL (4.50-6.00); RDW 24.3 % (10.5-14.5); WBC 6.5 thou/uL (4.0-11.0)
[2019-08-02 06:00] LABS: CALCIUM 8.3 mg/dL (8.5-10.1); CREATININE 0.7 mg/dL (0.7-1.3); POTASSIUM 3.3 mmol/L (3.5-5.1)
--- NOTE | 2019-08-02 07:27 | NUR ---
NO CHANGES OVERNIGHT. INTUBATED AND ON VENT. SEDATED WITH PROPOFOL, PRECEDEX, AND DILAUDID GTTS. OPENS EYES SPONTANEOUSLY AND FOLLOWS SIMPLE COMMANDS. PT IS PROGRESSING TOWARDS GOALS. WILL CONTINUE TO MONITOR.
[2019-08-02 07:38] LABS: INR 1.1; PROTIME 11.7 Seconds (9.3-11.4)
[2019-08-02 08:00] VITALS: BP 124/75
--- NOTE | 2019-08-02 09:48 | NUR ---
ASSUMED CARE OF PT AT 0645. PLAN TO TRACH/PEG ON MONDAY. DR LEA PLACED HOLD ON ELIQUIS FOR THE WEEKEND. INFORMED PT OF PLAN, HE NODS YES TO UNDERSTANDING. DR SANCHEZ OK TO DC EZIO TRAC. CHANGE ART LINE TUBING. ATTEMPTING TO WEAN OFF SEDATION. PT HELPED TURN HIMSELF, VERY STRONG.
--- NOTE | 2019-08-02 10:28 | NUR ---
Nutrition: REC increase tube feeds to 30 mL/hr based on current propofol demands.
[2019-08-02 12:01] VITALS: BP 101/59
--- NOTE | 2019-08-02 13:42 | NUR ---
SW reviewed chart and spoke with attending physician. Trach/peg placement is anticipated for Monday, 08/04. No weekend discharge planned. SW discussed LTAC placement with pt's sister yesterday. Awaiting input from pt's family. TORRIE is following to assist as needed with discharge planning.
[2019-08-02 16:00] VITALS: BP 80/40
[2019-08-02 20:00] VITALS: BP 111/61
[2019-08-03] VITALS (8 sets, daily range): BP systolic 100–137; BP diastolic 58–85
[2019-08-03 04:43] LABS: BE(vivo) -0.6 mmol/L (-2 to +3); HCO3 21.8 mmol/L (22.0-26.0); PCO2 29.3 mmHg (35.0-45.0); PO2 86.8 mmHg (80.0-100.0); pH 7.489 (7.360-7.450); sO2 97.3 % (92.0-98.0)
--- NOTE | 2019-08-03 05:10 | NUR ---
ASSUMED PT CARE AT 1900. PT IS SEDATED BUT FOLLOWS COMMAND. NO SIGN OF DISTRESS NOTED IN PT. DENIES PAIN. FALL PRECAUTION IN PLACE. ASSESSMENT COMPLETED AND DOCUMENTED. HAD A BOWEL MOVEMENT. ROOT CATH IN PLACE, PT IS ON VENTILATOR. SCHEDULED MEDS ADMINISTERED VIA OG TUBE. CONTINUE TO MONITOR PT. NO FURTHER NEEDS AT THIS TIME.
[2019-08-03 05:12] LABS: HEMATOCRIT 37.3 % (42.0-52.0); HEMOGLOBIN 11.8 gm/dL (14.0-18.0); MCHC 31.5 g/dL (28.0-37.0); MCV 82.5 fL (80.0-100.0); PLATELET COUNT 142 thou/uL (150-400); RBC 4.53 mil/uL (4.50-6.00); RDW 23.9 % (10.5-14.5); WBC 8.5 thou/uL (4.0-11.0)
[2019-08-03 05:23] LABS: ALBUMIN 2.9 g/dL (3.4-5.0); CALCIUM 8.2 mg/dL (8.5-10.1); CREATININE 0.6 mg/dL (0.7-1.3); POTASSIUM 3.3 mmol/L (3.5-5.1); TOTAL BILIRUBIN 0.8 mg/dL (<0.1-1.0); TOTAL PROTEIN 6.5 g/dL (6.4-8.2)
[2019-08-03 05:53] LABS: ABSOLUTE NEUTROPHILS 7.8 thou/uL (1.4-8.2); ANISOCYTOSIS 3+; ATYPICAL LYMPHS 1 %; MYELOCYTES 1 %; OVALOCYTES FEW
[2019-08-03 05:54] LABS: SCHISTOCYTES RARE
[2019-08-03 15:15] LABS: MAGNESIUM 1.8 mg/dL (1.8-2.4)
[2019-08-03 15:27] LABS: POTASSIUM 2.9 mmol/L (3.5-5.1)
--- NOTE | 2019-08-03 18:38 | NUR ---
pt is continuing intubated on vent with o2 40%, pt has iv medications ( propofol titration rate at 30-50 mcg/kg/min and precedex 0.8-1 mag/kg/hr ) to keep light sedation, pt can open his eyes by voice, and he can follow some commands, pt 's vs and o2sat are stable, pt has soft trestanints at both wrists for pt safty, pt is cofused at time, RN has called DR to report abnormal LAB results, pt has iv potassium and magnesium replacement , RN will report to next shift to keep eye on pt.
[2019-08-04] VITALS (15 sets, daily range): BP systolic 86–144; BP diastolic 43–96
[2019-08-04 05:15] LABS: HEMATOCRIT 38.2 % (42.0-52.0); HEMOGLOBIN 12.2 gm/dL (14.0-18.0); MCH 26.4 pg (26.0-34.0); MCHC 31.9 g/dL (28.0-37.0); MCV 82.8 fL (80.0-100.0); RBC 4.61 mil/uL (4.50-6.00); WBC 6.6 thou/uL (4.0-11.0)
[2019-08-04 05:20] LABS: CALCIUM 8.4 mg/dL (8.5-10.1); CREATININE 0.5 mg/dL (0.7-1.3); POTASSIUM 3.5 mmol/L (3.5-5.1)
--- NOTE | 2019-08-04 06:38 | NUR ---
ASSUMED CARE OF PATIENT AT 1900. ASSESSMENTS COMPLETED. PATIENT SEDATED ON VENT WITH PROPOFOL AND PRECEDEX. FOLLOWS SOME COMMANDS BY NODDING AND OPENS EYES TO VOICE. RECTAL TUBE PATENT. ROOT PATENT. Q 6 BLOOD SUGARS. POTASSIUM SUPPLEMENTED X 2 AND WITHIN NORMAL RANGE AT 3.5 DURING MORNING LABS. PATIENT SEEN BY DR. LEA THIS AM, PENDING NPO AT MIDNIGHT WITH PEG/TRACH SCHEDULED FOR MON AM. SPOKE WITH PATIENT'S MOTHER OVERNIGHT WHO WOULD LIKE TO SPEAK WITH DR. ERNST FOR BRONCHOSCOPY RESULTS. INFO PASSED TO DAY NURSE. PATIENT TO CONTINUE WITH POC.
--- NOTE | 2019-08-04 17:45 | NUR ---
PT is continuing intubatedn on vent, FiO2 40%, VT 600, PEEP 8, PT IS LIGHT SEDATION WITH MEDICATIONS, PROPOFOL 40MCG/KG/MIN AND PRECEDX 0.8MCG/HR, PT CAN OPEN HIS EYE BY VOICE, PT IS TOLERATED TUBE FEEDING AT 20ML/HR, PT'S VS ARE STABLE, PT'S O2SAT KEEPS AT 97-100%, PT HAS IV KCL 20MEQ REPLACEMENT , 2 RNS HAVE CALLED PT'S SISTER FOR PT'S PEG TUBE AND TRACHEOSTOMY PLACEMENT CONSENT , THIS PROCEDURE IS PLAN TOMORROW,
--- NOTE | 2019-08-04 20:24 | NUR ---
TF RESIDUAL 325ML. TF PLACED ON HOLD. PER DR ORDER, TF TO BE TURNED OFF AT MIDNIGHT/PT TO BE NPO FOR SURGERY TOMORROW.
--- NOTE | 2019-08-04 21:40 | NUR ---
2030 - DURING SEDATION VACATION, PT AWAKENED SPONANTEOUSLY. RR AND HR REMAINED STABLE. NO RESP DISTRESS NOTED. NO GAGGING OR BITING ON ET TUBE. PT WAS ABLE TO NOD HIS HEAD YES/NO TO QUESTIONS. PT NODDED HIS HEAD "NO" TO DENY ANY PAIN. PT WAS ABLE TO SQUEEZE BOTH HANDS ON COMMAND AND WIGGLE HIS TOES. PT MOVED BILATERAL LEGS ON HIS OWN IN THE BED. PT REMAINED CALM. NO ANXIETY OR RESTLESSNESS NOTED. PT REMAINS IN BILATERAL SOFT WRIST RESTRAINTS TO PREVENT HIM FROM DISCONNECTING ANY TUBES OR LINES. 2130 - SEDATION TITRATED DOWN SLIGHTLY PT IS RESTING COMFORTABLY AND HIS BP IS A LITTLE SOFT. PT WAS AWAKENED AND ASKED IF HE WAS COMFORTABLE. PT NODDED HEAD "YES". WILL CONTINUE TO MONITOR.
[2019-08-05] VITALS (42 sets, daily range): BP systolic 76–145; BP diastolic 41–94
--- NOTE | 2019-08-05 00:16 | NUR ---
SPOKE WITH PATIENT'S MOTHER (ALMA) ON THE PHONE. SHE WAS UPDATED ON PT'S STATUS AND REMINDED OF PLAN FOR TRACH AND PEG PLACEMENT LATER TODAY (08/04). ALL QUESTIONS ANSWERED.
[2019-08-05 04:56] LABS: HEMOGLOBIN 11.7 gm/dL (14.0-18.0); MCH 26.2 pg (26.0-34.0); MCHC 31.6 g/dL (28.0-37.0); MCV 82.9 fL (80.0-100.0); RBC 4.46 mil/uL (4.50-6.00); WBC 7.1 thou/uL (4.0-11.0)
[2019-08-05 05:17] LABS: CALCIUM 8.5 mg/dL (8.5-10.1); CREATININE 0.5 mg/dL (0.7-1.3); POTASSIUM 3.3 mmol/L (3.5-5.1)
--- NOTE | 2019-08-05 05:27 | NUR ---
FECAL MANAGEMENT TUBE WAS IN PLACE WHEN THIS RN ASSUMED PT CARE. COMPLETE BED BATH GIVEN THIS MORNING. WHEN TURNING PATIENT, FMS NOTED TO HAVE COME OUT OF RECTUM. MINIMAL TO SMALL ABOUT OF SEMI-LIQUID/SOFT STOOL NOTED. FMS LEFT OUT. WILL CONTINUE TO MONITOR.
--- NOTE | 2019-08-05 05:29 | NUR ---
PT REMAINS LIGHTLY SEDATED ON PRECEDEX AND PROPOFOL GTTS. HE AWAKENS SPONTANEOUSLY AND THEN DRIFTS BACK TO SLEEP. NO INDICATIONS OF PAIN ALL SHIFT. PT REMAINS IN BILATERAL SOFT WRIST RESTRAINTS HE DOES MOVE HANDS TOWARD HIS VENT TUBING WHEN RESTRAINTS ARE UNTIED. VSS. AFEBRILE. PLANS FOR TRACH AND PEG PLACEMENT TODAY. PROGRESSING VERY SLOWLY TOWARD POC GOALS. WILL CONTINUE TO MONITOR.
[2019-08-05 16:25] LABS: MAGNESIUM 1.9 mg/dL (1.8-2.4); POTASSIUM 3.3 mmol/L (3.5-5.1)
--- NOTE | 2019-08-05 16:31 | NUR ---
TORRIE reviewed chart and spoke with attending physician. Pt to have trach and peg tube placed today. Pt to need LTAC placement upon discharge. [facility] are unable to accept [place]-Medicaid pts at this time. TORRIE spoke with pt's sister, Marci and mother, Marleni, via conference call. SW discussed alternate LTACs. Pt's family are agreeable to [facility], as it is the closest LTAC to [facility]. Pt's father was at [facility] and they did not have a good experience. Family not wanting pt to be in another city or part of the state. technical planner to fax referral to [facility]. TORRIE notified [facility] liaison of new referral. TORRIE is following to assist as needed with discharge planning.
--- NOTE | 2019-08-05 16:38 | NUR ---
PT HAS TRACHEOSTOMY AND PEG TUBE PLAACEMENT TODAY, PT IS CONTINUING SEDATION , TITRATED MEDICATIONS TO ACHIEVER RASS -1,0 OR +1, PT IS ON VENT AC MODE: FIO2 40%, PEEP 8, PT'S VS ARE STABLE, O2SAT KEEP AT 97-100%, PT'S PEG TUBE SITE DRESSING IS CDI , PT HAS ABDOMINAL BINDER, PT'S TRACH SITE HAS LIGHT BLEEDING , RT HAS CHANGED DRESSING, PT CAN OPEN HIS EYE BY VOICE AND HE CAN FOLLOW SOME COMMANDS, PT DENIES PAIN AT THIS TIME, PT IS ON BILATERAL WRIST SOFT RESTRAINTS FOR SAFTY. NEW PEG TUBE WILL START IN 6HR, START 10ML/HR.
--- NOTE | 2019-08-05 17:20 | NUR ---
FAXED REFERRAL TO [facility] RECEIVED CONFIRMATION AND SPOKE WITH LEANNA IN ADM SHE WILL REVIEW. DP TO FOLLOW.
--- NOTE | 2019-08-05 19:01 | NUR ---
PT 'S TUBE FEEDING HAS STARTED 10ML/HR AT 1830PM PER ORDER, PT IS TOLERATING NOW, RN WILL REPORT TO NEXT SHIFT TO KEEP EYE ON PT.
--- NOTE | 2019-08-05 21:42 | NUR ---
ASSUMED PT CARE AT 1900. DARK RED FLAKES NOTED IN URINE AT 2099. FLAKES CLEARED OUT BY 2139. PT IS STABLE. WILL CONTINUE TO CLOSELY MONITOR
[2019-08-06] VITALS (26 sets, daily range): BP systolic 79–150; BP diastolic 47–96
[2019-08-06 05:11] LABS: HEMATOCRIT 38.4 % (42.0-52.0); HEMOGLOBIN 12.3 gm/dL (14.0-18.0); MCH 26.6 pg (26.0-34.0); MCV 83.2 fL (80.0-100.0); RBC 4.61 mil/uL (4.50-6.00); WBC 9.6 thou/uL (4.0-11.0)
[2019-08-06 05:15] LABS: CALCIUM 8.5 mg/dL (8.5-10.1); CREATININE 0.6 mg/dL (0.7-1.3); POTASSIUM 3.7 mmol/L (3.5-5.1)
--- NOTE | 2019-08-06 06:50 | NUR ---
PT IS STABLE. UNEVENTFUL NIGHT SLOWLY PROGRESSING TOWARDS POC GOALS. SPOKE TO PT'S MOM AROUND 0 UPDATED HER ABOUT PT'S STATUS. TOLD HER HIS FI02 AT 40%.SHE WONDERED IF WE WERE GOING TO TITRATE IT TO SEE IF HE COULD BE ON A LOWER PERCENT RATE. PT'S MOM ALSO WANTED TO KNOW HIS PROGNOSIS AND PLAN FOR CONTINUED CARE (SINCE HE COMPLETED HIS ABX TX); I TOLD HER I WOULD PASS ON TO THE DAY NURSE FOR PROVIDER TO CALL AND UPDATE HER ABOUT CARE.
--- NOTE | 2019-08-06 12:09 | O ---
[address] [address] OPERATIVE REPORT Name: BAIRON MOTA Room #: 242-P [facility] IN M.R.#: [id number] Admission: 07/19/19 Attend Phys: Amadeo Wei MD Discharge: Date of : 63 Report #: [id number] THIS REPORT FOR: cc: Rafael Jarrett MD, Shyam MD Gates,Dejan Bear MD ~ CC: Amadeo Jarrett DATE OF SERVICE: 08/05/2019 PROCEDURE PERFORMED: 1. Open redo tracheostomy. 2. EGD with placement of percutaneous endoscopic gastrostomy feeding tube. PREOPERATIVE DIAGNOSES: 1. Acute respiratory failure. 2. Pneumonia. 3. Chronic obstructive pulmonary disease. 4. Congestive heart failure. 5. Atrial fibrillation. 6. History of pulmonary embolism, on Eliquis. 7. Severe morbid obesity. 8. Anxiety/depression. 9. Hypothyroidism. 10. History of stage 4 lung cancer. 11. Diabetes mellitus. 12. Gastroesophageal reflux disease. POSTOPERATIVE DIAGNOSES: 1. Acute respiratory failure. 2. Pneumonia. 3. Chronic obstructive pulmonary disease. 4. Congestive heart failure. 5. Atrial fibrillation. 6. History of pulmonary embolism, on Eliquis. 7. Severe morbid obesity. 8. Anxiety/depression. 9. Hypothyroidism. 10. History of stage 4 lung cancer. 11. Diabetes mellitus. 12. Gastroesophageal reflux disease. SURGEON: Dr. Wallace. TOOL GRINDER OPERATOR EXTERNAL: None. [address] [place] [address] OPERATIVE REPORT Name: BAIRON MOTA Room #: 242-P [facility] IN M.R.#: [id number] Admission: 07/19/19 Attend Phys: Amadeo Wei MD Discharge: Date of : 63 Report #: [id number] ANESTHESIA: General. ESTIMATED BLOOD LOSS: Less than 10 mL. URINE OUTPUT: Not measured. COMPLICATIONS: None. FINDINGS: 1. The patient had large amount of scar tissue between the skin and his trachea. The trachea was able to be appropriately identified and cleaned off. No other abnormality was appreciated within the neck. EGD FINDINGS: Normal esophagus, abnormal Z line, normal stomach, normal duodenum. SPECIMENS: None. INDICATIONS FOR PROCEDURE: The patient is a 54-year-old gentleman with severe morbid obesity, respiratory failure requiring intubation, and history of tracheostomy and mediastinoscopy who has been intubated in the ICU. General Surgery was consulted for tracheostomy and PEG tube placement. The risks, benefits and alternatives of the procedure were discussed with the patient's sister. The risks discussed included but were not limited to the risk of bleeding, infection, inability to place the tracheostomy or the PEG tube, extreme difficulty with the procedure due to recurrent procedures, need for permanent tracheostomy and feeding tube, worsening hypoxia, worsening respiratory failure, cardiac and neurologic type complications and . He understood that his feeding tube pulled immediately after the procedure he would require emergent surgery. The family had the opportunity to ask questions. All questions were answered to the best of my ability. At the end of the discussion, they did wish to proceed with surgery. DESCRIPTION OF PROCEDURE: After informed consent was obtained as above, the patient was taken to the operating room and placed in supine position. General anesthesia was induced. He is already intubated. His preprocedure antibiotics were administered. His anterior neck was prepped and draped in the usual sterile fashion and timeout was performed. A 4 cm incision was made overlying the patient's previous tracheostomy scar. Incision was carried down to the skin using electrocautery. The patient had scar tissue between his skin and his strap muscles. This was carefully dissected using electrocautery. Strap muscles were identified and dissected out in the median raphe. The strap muscles were tightly adhered to the trachea into the thyroid from previous adhesions. This was carefully dissected away, the cricoid cartilage was [address] [address] OPERATIVE REPORT Name: BAIRON MOTA Room #: 242-P [facility] IN ..#: [id number] Admission: 07/19/19 Attend Phys: Amadeo Wei MD Discharge: Date of : 63 Report #: [id number] appreciated. The patient's thyroid was mobilized at the isthmus to expose the trachea better. Blunt dissection was used to clean off the trachea. Next, the clay maker let down the balloon. The tracheotomy was performed using a U-shaped incision. The flap was lifted. A size #7-Hungarian extended length Shiley tracheostomy tube was inserted into the trachea under direct visualization. The ventilator was connected to it. The patient had appropriate end-tidal CO2, appropriate oxygen saturations and appropriate tidal volumes. He was oxygenating well. The skin incision was closed using 2-0 nylon in interrupted fashion. The tracheostomy tube was secured to the skin using 2-0 nylon in an interrupted fashion. The trach ties were applied. The patient tolerated this portion of the procedure very well. Next, the EGD scope was passed through the patient's mouth, down the esophagus, into the stomach and first portion of the duodenum under direct visualization. Findings as above. Scope was retracted in the patient's stomach lumen. The gastric lumen was distended. Light was visualized at the patient's previous PEG tube site. Finger indentation test used to confirm it. The air leak test using a seeker needle was used to confirm no luminal structures were between the stomach and the anterior abdominal wall. The Cook needle and sheath were inserted in the stomach under direct visualization. The guidewire was inserted through the sheath. It was grasped from above with a snare, brought out of the patient's mouth. With snare, the guidewire was connected to the 24-Hungarian PEG tube. The PEG tube was secured to the scope and the PEG tube was pulled into the patient's stomach and out the anterior abdominal wall using the guidewire and traction. It was pulled up snugly to the anterior abdominal wall at 5.5 cm. Hemostasis was present both within the stomach and the anterior abdominal wall. The scope was retracted out the patient's mouth after removing the gaseous distention of the stomach. The patient tolerated the procedure well. There were no adverse events throughout the course of procedure. <ELECTRONICALLY SIGNED> By: Dejan Wallace MD 08/06/19 [id number] Dejan Wallace MD /preet
--- NOTE | 2019-08-06 17:11 | NUR ---
SW reviewed chart and spoke with attending physician. Pt is progressing towards goals for discharge to [facility]. Pt had trach/peg placed yesterday. TORRIE spoke with [facility] liaison who states they are able to accept pt pending [place]-Medicaid authorization. Discharge anticiated in 1-2 days. TORRIE spoke with pt's sister, Marci, via phone to provide update and discuss discharge timeframe. Pt's sister is aware and agreeable with discharge plan. TORRIE is following to assist as needed with discharge planning.
--- NOTE | 2019-08-06 17:43 | NUR ---
PT TRACH/VENT SEDATED ON PROPOFOL AND PRECEDEX GTTS. PT WILL FOLLOW SIMPLE COMMANDS ON SEDATION VACATION. VSS, ROOT TO DD. PT DOES NOT APPEAR TO BE IN ANY PAIN. PT TOLERATING TUBE FEEDING WELL AT GOAL RATE OF 30ML/HR. WILL CONTINUE TO MONITOR.
[2019-08-07] VITALS (11 sets, daily range): BP systolic 105–133; BP diastolic 40–83
[2019-08-07 06:01] LABS: CALCIUM 8.5 mg/dL (8.5-10.1); CREATININE 0.6 mg/dL (0.7-1.3)
--- NOTE | 2019-08-07 10:30 | NUR ---
RIGHT A LINE REMOVED, PRESSURE HELD UNTIL HEMOSTASIS ACHEIVED. DRESSING PLACED. STRONG PULSE.
[2019-08-07] MEDS ORDERED: OMEPRAZOLE 20 M20 M1 PER TUBE (13:42)
[2019-08-07] MEDS ORDERED: METOCLOPRAM5 MG/1 ML IV PUSH (13:42)
[2019-08-07] MEDS ORDERED: ELIQUIS5 MG PER TUBE (13:42)
[2019-08-07] MEDS ORDERED: MIRALAX17 GM PO (13:42)
[2019-08-07] MEDS ORDERED: FUROSEMIDE20 MG/2 ML IV PUSH (13:42)
[2019-08-07] MEDS ORDERED: BUSPIRONE HCL5 MG PO (13:42)
[2019-08-07] MEDS ORDERED: NOVOLOG100 UNIT/1 SUBQ (13:55)
[2019-08-07] MEDS ORDERED: TYLENOL325 MG PO (13:55)
--- NOTE | 2019-08-07 14:26 | NUR ---
pt to go to [facility] around 1600 per stretcher, sw to inform family, this rn to call report to facility
--- NOTE | 2019-08-07 15:13 | NUR ---
report called to [facility]
--- NOTE | 2019-08-07 16:12 | NUR ---
DISCHARGE NOTE: SW reviewed chart and spoke with nursing and attending physician. Pt is medically stable for discharge to [facility] today. TORRIE sent clinical updates to [facility] for review. [facility] does have a bed available today and obtained authorization from [place]-Medicaid. Pt to be admitted to room #103 at [facility]. [facility] requests ambulance transportation to be scheduled for 1600 today. TORRIE faxed finalized discharge orders/summary to [facility]. Chart copy requested from . Nursing updated and provided with number to call report. communications planner to arrange ambulance and notify family. SW notified Centers liaison. No additional SW needs identified at this time, but is available to assist should needs arise.
--- NOTE | 2019-08-07 17:14 | NUR ---
ems came to get pt around 1600, did not have the bariatric stretcher. that crew left and said they would get back with a time for another crew to bring bariatric stretcher. have not heard from them, on the phone with dispatcher now to find out new time of arrival.
--- NOTE | 2019-08-07 17:46 | NUR ---
pt picked up by ems, all belongings including wallet and cell phone sent with pt. pt had large bm that was cleaned up right before dc. whitaker and picc in place
== END 2019-08-07 17:54 | disposition short-term general hospital (02) | DRG 4 ==
LOC: ER 17:16 → ICU 19:26 → EROBS 19:26 → 3W 22:24 → ICU 07-20 05:32
PROVIDERS: Hospitalist; Internal Medicine; Internal Medicine Cardiovascular Disease; Internal Medicine Pulmonary Disease; Nurse Practitioner; Nurse Practitioner Adult Health; Nurse Practitioner Family; Pediatrics; Physician Assistant; Specialist; ADMIT Internal Medicine
PROC: 5A09357 Assistance with Respiratory Ventilation, Less than 24 Consecutive Hours, Continuous Positive Airway Pressure (ICD-10-PCS; 2019-07-19)
PROC: 05HY33Z Insertion of Infusion Device into Upper Vein, Percutaneous Approach (ICD-10-PCS; 2019-07-20)
PROC: 5A1955Z Respiratory Ventilation, Greater than 96 Consecutive Hours (ICD-10-PCS; 2019-07-20)
PROC: 0BH17EZ Insertion of Endotracheal Airway into Trachea, Via Natural or Artificial Opening (ICD-10-PCS; 2019-07-20)
PROC: 4B02XSZ Measurement of Cardiac Pacemaker, External Approach (ICD-10-PCS; 2019-07-24)
PROC: 0B21XEZ Change Endotracheal Airway in Trachea, External Approach (ICD-10-PCS; 2019-07-25)
PROC: 03HY32Z Insertion of Monitoring Device into Upper Artery, Percutaneous Approach (ICD-10-PCS; 2019-07-26)
PROC: 0BD58ZX Extraction of Right Middle Lobe Bronchus, Via Natural or Artificial Opening Endoscopic, Diagnostic (ICD-10-PCS; 2019-07-30)
PROC: 0B9D8ZX Drainage of Right Middle Lung Lobe, Via Natural or Artificial Opening Endoscopic, Diagnostic (ICD-10-PCS; 2019-07-30)
PROC: 0B110F4 Bypass Trachea to Cutaneous with Tracheostomy Device, Open Approach (ICD-10-PCS; principal; 2019-08-05)
PROC: 0DH68UZ Insertion of Feeding Device into Stomach, Via Natural or Artificial Opening Endoscopic (ICD-10-PCS; 2019-08-05)
DX: A41.9 Sepsis, unspecified organism (principal); J96.22 Acute and chronic respiratory failure with hypercapnia; G92 Toxic encephalopathy; I50.43 Acute on chronic combined systolic (congestive) and diastolic (congestive) heart failure; J96.21 Acute and chronic respiratory failure with hypoxia; J12.89 Other viral pneumonia; I48.20 Chronic atrial fibrillation, unspecified; I48.21 Permanent atrial fibrillation; D68.9 Coagulation defect, unspecified; J44.1 Chronic obstructive pulmonary disease with (acute) exacerbation; I42.5 Other restrictive cardiomyopathy; Z68.45 Body mass index [BMI] 70 or greater, adult; E66.01 Morbid (severe) obesity due to excess calories; G47.33 Obstructive sleep apnea (adult) (pediatric); E03.9 Hypothyroidism, unspecified; K21.9 Gastro-esophageal reflux disease without esophagitis; F41.9 Anxiety disorder, unspecified; E11.9 Type 2 diabetes mellitus without complications; I10 Essential (primary) hypertension; Z60.2 Problems related to living alone; D64.9 Anemia, unspecified; I49.5 Sick sinus syndrome; E87.6 Hypokalemia; D69.6 Thrombocytopenia, unspecified; I35.0 Nonrheumatic aortic (valve) stenosis; I87.2 Venous insufficiency (chronic) (peripheral); F32.9 Major depressive disorder, single episode, unspecified; Z71.3 Dietary counseling and surveillance; Z03.818 Encounter for observation for suspected exposure to other biological agents ruled out; Z88.1 Allergy status to other antibiotic agents; Z88.8 Allergy status to other drugs, medicaments and biological substances; Z86.711 Personal history of pulmonary embolism; Z99.81 Dependence on supplemental oxygen; Z85.118 Personal history of other malignant neoplasm of bronchus and lung; Z95.828 Presence of other vascular implants and grafts; Z79.01 Long term (current) use of anticoagulants; Z20.828 Contact with and (suspected) exposure to other viral communicable diseases
CPT/HCPCS: 10078; 10879; 27000; 50101; 50386; 50403; 50550; 56525; 62110; 62900; 85026

== ENCOUNTER 2019-09-24 18:15 | Inpatient (IN) | payer OTHER ==
[~2019-09-24] VITALS: Ht 182.9 cm; Wt 242.0 kg
[~2019-09-24 18:15] MED LIST changes: +BUSPIRONE HCL5 MG PO; +ELIQUIS5 MG PER TUBE; +FUROSEMIDE20 MG/2 ML IV PUSH; +METOCLOPRAM5 MG/1 ML IV PUSH; +MIRALAX17 GM PO; +NOVOLOG100 UNIT/1 SUBQ; +OMEPRAZOLE 20 M20 M1 PER TUBE; +TYLENOL325 MG PO
[2019-09-24 18:16] VITALS: BP 95/59
[2019-09-24 18:59] LABS: ABSOLUTE NEUTROPHILS 7.4 thou/uL (1.4-8.2); BASOPHILS 0.9 % (0.0-2.0); EOSINOPHILS 2.2 % (0.0-3.0); HEMATOCRIT 35.1 % (42.0-52.0); HEMOGLOBIN 11.4 gm/dL (14.0-18.0); LYMPHOCYTES 9.1 % (24.0-44.0); MCH 27.4 pg (26.0-34.0); MCHC 32.5 g/dL (28.0-37.0); MCV 84.4 fL (80.0-100.0); MONOCYTES 4.9 % (1.0-8.0); PLATELET COUNT 199 thou/uL (150-400); POLYS 82.9 % (36.0-66.0); RBC 4.15 mil/uL (4.50-6.00); RDW 18.6 % (10.5-14.5); WBC 8.9 thou/uL (4.0-11.0)
[2019-09-24 19:02] LABS: ANION GAP < 0 mmol/L (7-16); BUN 13 mg/dL (7-18); CALCIUM 8.9 mg/dL (8.5-10.1); CHLORIDE 101 mmol/L (98-107); CO2 40 mmol/L (21-32); GLUCOSE 152 mg/dL (74-106); POTASSIUM 3.5 mmol/L (3.5-5.1); SODIUM 139 mmol/L (136-145)
[2019-09-24 19:08] LABS: ALBUMIN 3.1 g/dL (3.4-5.0); SGOT 23 U/L (15-37); SGPT 17 U/L (30-65); TOTAL BILIRUBIN 0.7 mg/dL (0.2-1.0); TOTAL PROTEIN 7.1 g/dL (6.4-8.2)
[2019-09-24 22:46] VITALS: BP 119/78
[2019-09-24 23:10] VITALS: BP 119/82
[2019-09-24 23:41] VITALS: BP 141/83
[2019-09-25 04:04] VITALS: BP 95/55
[2019-09-25 05:45] LABS: HEMATOCRIT 30.6 % (42.0-52.0); HEMOGLOBIN 9.8 gm/dL (14.0-18.0); MCH 27.4 pg (26.0-34.0); MCV 85.6 fL (80.0-100.0); RBC 3.58 mil/uL (4.50-6.00); RDW 18.9 % (10.5-14.5); WBC 7.3 thou/uL (4.0-11.0)
[2019-09-25 05:57] LABS: CALCIUM 8.4 mg/dL (8.5-10.1); CREATININE 0.8 mg/dL (0.7-1.3); POTASSIUM 3.1 mmol/L (3.5-5.1)
[2019-09-25 06:37] VITALS: BP 122/66
--- NOTE | 2019-09-25 07:17 | NUR ---
ASSUMED CARE OF PT FROM [facility] 2320HRS. PT IS AOX4 AND LETS NEEDS BE KNOWN. PT WAS ORIENTED TO THE UNIT AND HIS ROOM. FALL PRECAUTION IN PLACE. ORDERS RECEIVED AND STARTED. PT REPORTS PAIN ON HIS LLE AND LEFT HIP. PRN PAIN MEDS GIVED WITH MINIMAL RELIEF. PT STATES THAT DILAUDID WORKS THE BEST FOR HIM. PT WAS ABLE TO ANSWER ALL ADMISSION RELATED QUESTIONS. PT IS FROM [facility]. PT HAD A PEG TUBE, TRACHEOSTOMY AND ROOT PRIOR TO THIS ADMISSION. PT USES 2-3 L O2 VIA NC HERE AND AT HOME. PT USES A BIPAP AT HS. PT HAD LOW BP AND HOME CARE SCHEDULER WAS NOTIFIED. PT WAS ABLE TO GET COMFORTABLE AND SLEEP PART OF THE SHIFT. NO S/S OF ACUTE DISTRESS. WILL CONTINUE TO MONITOR.
[2019-09-25 07:48] VITALS: BP 87/43
--- NOTE | 2019-09-25 09:25 | NUR ---
RD consulted for wound. Pt with recent hx CHF, respiratory failure and past intubation. PEG was placed 08/04. Pt reports full able to eat, does not use PEG. Class III obesity with BMI 70. Wts highly variable 480-574 lb, current wt is 510 lb. Has carb control diet order. pt stating "I am not diabetic, give me a regular diet." Has DM listed in hx, and on ss insulin orders. BG 109. Alerted nurse who will speak with physician to clarify. Admit with abdominal cellulitis. Consider low nutrition risk with adequate appetite.
--- NOTE | 2019-09-25 13:32 | NUR ---
PATIENT IS REFUSING HIS BREATHING TREATMENTS. DR STEVENS WAS ON THE UNIT AND NOTIFIED OF REFUSAL. ALSO SPOKE TO PATIENT IN REGARD TO HIS TRILOGY BIPAP HE STATED THAT HE DIDN'T THINK IT WAS WORKING CORRECTLY. I TOLD HIM THAT I WAS UNABLE TO MAKE ADJUSTMENTS TO HIS CURRENT SETTINGS THAT HE WOULD HAVE TO CALL HIS HOME CARE COMPANY FOR THAT. I DID TELL HIM THAT I WAS ABLE TO OFFER HIM ONE OF OUR HOME UNITS OR V60'S AND HE COULD USE HIS MASK IF WE WERE ABLE TO ACCOMODATE WITH OUR UNITS.
[2019-09-25 15:13] VITALS: BP 111/72
--- NOTE | 2019-09-25 15:15 | NUR ---
CM ATTEMPTED NUMEROUS CALLS TO ASSESS PT THIS DAY. UNABLE TO REACH PT OF THIS NOTE. CM TO CONTINUE TO ATTEMPT.
--- NOTE | 2019-09-25 15:27 | NUR ---
PT ADMITTED RELATED TO SEPSIS; CELLULITIS. CM REVIEWED CHART AND SPOKE WITH CARE TEAM. CM CALLED AND SPOKE WITH AT BEDSIDE THIS DAY. PT APPEARED TO BE A&O X4. CM ROLE INTRODUCED. 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 PT INDICATED HE HAD BEEN AT [facility] PRIOR TO THAT SINCE DISCHARGED FROM HERE 08/07/19. PT INDICATED HE HADN'T BEEN HOME SINCE May OF LAST YEAR HAVING BEEN TO NUMEROUS HOSPITALS, SKILLED REHAB FACILIIES, ACUTE REHABS, AND LTACS. PT INDICATED THAT HE WAS NOT PLEASED WITH CARE AT NEEDLES. PT INDICATED HE ANTICIPATED RETURNING TO [facility] ONCE MEDICALLY STABLE IF THERE ARE SOME THINGS THAT THEY ADDRESS. STATED HE HAD ISSUE WITH THE BED AND MANDATED 2 WEEK QUARENTINE.... HE GAVE PERMISSION FOR CM TO KEEP FACILITY UPDATED. CM TO FOLLOW INDICATED WITH DC PLANNING.
--- NOTE | 2019-09-25 17:03 | NUR ---
ASSUMED CARE AT 0900. PT IS ALERT AND ORIENTED. HE IS APPROPRIATE BUT PASSIVE AGGRESSIVE AND RUDE AT TIMES. VSSA/ 3 L O2 IS BASELINE FOR HIM. HIS MAJOR COMPLAINT WAS PAIN THIS AM AND THAT WAS ADDRESSED. GIVING PAIN MEDS PRN ORDERED. TELE MONITOR NSRJanet ROOT WAS IN PLACE WHEN I TOOK OVER, HOWEVER THE BAG WAS LEAKING SO ANTOHER 16 FR WAS PLACED. PT HAS JTUBE IN PLACE NOT BEING USED. TOLERATING DIET AND BLOOD SUGARS MONITORING. PIV INFUSING WITHOUT ISSUES. PT IS OBESE AND BEDREST. WILL CONTINUE TO MONITOR.
[2019-09-25 19:05] VITALS: BP 96/63
[2019-09-25] MEDS ORDERED: ATIVAN1 M1 PO (21:47)
[2019-09-25] MEDS ORDERED: SERTRALINE HCL100 MG PO (21:47)
[2019-09-25] MEDS ORDERED: AMIODARONE HCL400 MG (21:50)
[2019-09-25] MEDS ORDERED: HYDROXYZINE HCL10 M2 PO (21:52)
[2019-09-25] MEDS ORDERED: PACERONE200 MG PO (21:54)
[2019-09-25 23:14] VITALS: BP 119/84
[2019-09-25 23:30] LABS: URINE BILIRUBIN NEGATIVE (Negative); URINE BLOOD 3+ (Negative); URINE CLARITY SL CLOUDY; URINE COLOR YELLOW; URINE GLUCOSE-RANDOM* NEGATIVE (Negative); URINE KETONES NEGATIVE (Negative); URINE LEUKOCYTES 1+ (Negative); URINE NITRITE NEGATIVE (Negative); URINE PROTEIN (DIPSTICK) 1+ (Negative); URINE SPECIFIC GRAVITY 1.015 (1.005-1.035)
[2019-09-25 23:41] LABS: BACTERIA 1-9 Few /HPF (None Seen); CASTS None Seen /LPF (None Seen); MUCUS 4-6 Moderate strn/LPF (None Seen); SQUAMOUS 0-3 Few /LPF (0-3); URINE RBC >20 Many /HPF (0-2); URINE WBC 6-15 Few /HPF (0-5)
[2019-09-25 23:42] LABS: CRYSTALS None Seen /LPF (None Seen)
[2019-09-26 04:15] VITALS: BP 91/56
[2019-09-26 05:50] LABS: ABSOLUTE NEUTROPHILS 4.5 thou/uL (1.4-8.2); BASOPHILS 1.3 % (0.0-2.0); EOSINOPHILS 4.1 % (0.0-3.0); HEMATOCRIT 29.7 % (42.0-52.0); HEMOGLOBIN 9.6 gm/dL (14.0-18.0); LYMPHOCYTES 14.1 % (24.0-44.0); MCH 27.6 pg (26.0-34.0); MCHC 32.2 g/dL (28.0-37.0); MCV 85.7 fL (80.0-100.0); MONOCYTES 8.4 % (1.0-8.0); PLATELET COUNT 136 thou/uL (150-400); POLYS 72.1 % (36.0-66.0); RBC 3.47 mil/uL (4.50-6.00); RDW 18.9 % (10.5-14.5); WBC 6.2 thou/uL (4.0-11.0)
[2019-09-26 06:15] LABS: ALBUMIN 2.4 g/dL (3.4-5.0); CALCIUM 8.2 mg/dL (8.5-10.1); CREATININE 0.9 mg/dL (0.7-1.3); POTASSIUM 3.2 mmol/L (3.5-5.1); TOTAL BILIRUBIN 0.5 mg/dL (0.2-1.0); TOTAL PROTEIN 5.7 g/dL (6.4-8.2)
[2019-09-26 07:21] VITALS: BP 125/89
--- NOTE | 2019-09-26 08:39 | NUR ---
ASSUMED PT CARE AT 1900. PT A&OX4. AGGITATED WITH STAFF THAT HE WASNT GETTING ALL HIS HOME MEDS. THIS NURSE GOT ORDERS TO START HOME MEDS AND PT WAS IN A BETTER MOOD. PAIN BEING CONTROLLED WITH IV PAIN MEDS - PT SAYS THE PO DOES NOTHING FOR HIM. A FIB ON MONITOR. ROOT PATENT WITH GOOD OOUTPUT. ANTIBIOTICS GIVEN PER ORDER. CALLS APPROPRIATELY. ASKED TO NOT BE WOKEN UP BEFORE 8AM WITH "ANY STUPID PILLS" SLEEP MOST THE NIGHT IN BED WITH CIPAP ON.
--- NOTE | 2019-09-26 13:20 | NUR ---
WOUND CONSULT; INITIAL ASSESSMENT OF THIS PATIENT. ASSESSMENT OF THE BUTTOCKS WITH THE RN WAS UNREMARKABLE. THE PANNOUS FOLD HAS NO REMARKABLE ERYTHEMA OR S/S OF A FUNGAL RASH. RECOMMENDATIONS; NO NEED TO FOLLOW. RECONSULT IF NEEDED. WOUND CARE WILL SIGN OFF
[2019-09-26 15:40] VITALS: BP 127/72
--- NOTE | 2019-09-26 15:45 | NUR ---
CARE TEAM INDICATED PT IS TO RECEIVE IV ABX, WC CONSULTED, AND THERE HAD BEEN SOME MENTION OF POSSIBLE REMOVAL OF PEG TUBE IT ISN'T BEING USED. HERO CONTACTED ELIANA IN ADMISSIONS AT [facility] AND SHE INDICATED THAT THEY WOULD BE ABLE TO ACCEPT PT BACK UPON DC. 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 CM INDICATED THAT YESTERDAY PT INDICATED INDICATED HE INTENDED TO RETURN TO THEIR FACILITY ALTHOUGH HE WANTED ISSUES WITH HIS BED ADDRESSED AND WASN'T FOND OF THE FACT THAT HE HAS TO QUARANTINE FOR 14 DAYS. CM EXPRESSED THESE THINGS THERESA AND SHE INDICATED THE ISSUE WITH THE BED WOULD BE ADDRESSED. CM FAXED CLINICAL UPDATE TO FACILITY. CM TO FOLLOW INDICATED WITH DC PLANNING.
--- NOTE | 2019-09-26 18:41 | NUR ---
PT IS AOX4, VSS, PAIN CONTROLLED WITH ORAL ANALGESIC. PT IV IS PATENT WITH IV FLUIDS RUNNING. PT APPETITE IS GOOD, USING CALL LIGHT APPROPRIATELY. WILL CONTINUE TO MONITOR.
[2019-09-26 19:20] VITALS: BP 138/104
--- NOTE | 2019-09-27 01:08 | NUR ---
PATIENT CAN TURN SELF IN BED. PATIENTS PAIN IS CONTROLLED WITH MEDICATION. PATIENT IS RESTING COMFORTABLEY. WCM.
[2019-09-27 05:05] VITALS: BP 105/67
[2019-09-27 07:39] VITALS: BP 115/76
--- NOTE | 2019-09-27 15:33 | NUR ---
CARE TEAM INDICATED THAT PT WOULD NOT LIKELY BE MEDICALLY STABLE TO DC OVER THE WEEKEND, BUT MAYBE THE BEGINING OF NEXT WEEK. PLAN IS FOR PT TO RETURN TO [facility] ONCE MEDICALLY STABLE. SHOULD PT BE READY OVER WEEKEND EVELYN MONROY IN ADMISSIONS AT [phone]. FAX ORDERS TO CALL REPORT TO . CM TO FOLLOW INDICATED WITH DC PLANNING.
[2019-09-27 17:30] VITALS: BP 131/85
--- NOTE | 2019-09-27 18:18 | NUR ---
PT IS AOX4, NEW IV PLACED IN LEFT UPPER ARM. PT BECAME UPSET WHEN OFFERED THE ORAL ANALGESIC 1ST. PT REPORTS HE HAS TO HAVE AN IV ANALGESIC TO CONTROL HIS GENERALIZED PAIN. PT CALLS APPROPRIATELY. REFUSED MIRALAX, NURSE EDUCATED PT THAT IT WILL HELP WHEN TAKING NARCOTIC. WILL CONTINUE TO MONITOR.
[2019-09-27 21:29] VITALS: BP 90/62
--- NOTE | 2019-09-28 04:39 | NUR ---
PATIENT ALERT AND ORIENTED X4. MEDICATED FOR PAIN WITH PERCOCET AND DILAUDID FREQUENTLY DURING THE NIGHT PATIENT TIMES PRN'S AND ROTATES MEDICATION. 3LNC DURING THE DAY AND CPAP DURING THE NIGHT. BS MONITORED PER ORDER. TELEMETRY DUE TO AFIB. ROOT TO D/D. PEG TUBE NOT IN USE. IV PATIENT. WILL MONITOR. RESTING QUIETLY.
[2019-09-28 08:28] VITALS: BP 103/63
--- NOTE | 2019-09-28 16:32 | NUR ---
ASSUMED CARE OF PT AT 0700. PT IS ALERT AND ORIENTED. VSSA/3L O2 AT BASELINE. ON TELE WITH H/O AFIB. MAIN COMPLAINT IS PAIN CONTROL. WILL GIVE PRN PAIN MEDS ORDERED. ROOT IN PLACE. TOLERATING DIET, BLOOD SUGARS MONITORED. PEG TUBE IN PLACE CLAMPED. PIV INFUSING WITHOUT ISSUES. PT IS BEDBOUND, CALL LIGHT IN PLACE. WILLL CONTINUE TO MONITOR
[2019-09-28 19:37] VITALS: BP 109/63
[2019-09-29 05:29] LABS: ABSOLUTE NEUTROPHILS 4.5 thou/uL (1.4-8.2); BASOPHILS 1.1 % (0.0-2.0); EOSINOPHILS 5.6 % (0.0-3.0); HEMOGLOBIN 10.1 gm/dL (14.0-18.0); LYMPHOCYTES 14.6 % (24.0-44.0); MCH 27.2 pg (26.0-34.0); MCHC 31.7 g/dL (28.0-37.0); MCV 85.7 fL (80.0-100.0); MONOCYTES 6.5 % (1.0-8.0); PLATELET COUNT 163 thou/uL (150-400); POLYS 72.2 % (36.0-66.0); RBC 3.73 mil/uL (4.50-6.00); RDW 18.7 % (10.5-14.5); WBC 6.3 thou/uL (4.0-11.0)
[2019-09-29 05:38] LABS: CALCIUM 8.5 mg/dL (8.5-10.1); CREATININE 0.9 mg/dL (0.7-1.3); POTASSIUM 3.4 mmol/L (3.5-5.1)
--- NOTE | 2019-09-29 05:46 | NUR ---
PATIENT ALERT AND ORIENTED X4. BEDREST DURING THE NIGHT. IVPB'S INFUSED W/O COMPLICATION. COOPERATIVE WITH CARE. 3LNC DURING THE DAY AND CPAP AT NIGHT. PATIENT ROTATES PRN MEDICATION FROM ORAL TO IVP THROUGHOUT THE NIGHT. BS MONITORED PER ORDER. TELEMETRY MONITORED. RESTING QUIETLY.
[2019-09-29 08:14] VITALS: BP 1104/74
[2019-09-29 11:53] VITALS: BP 112/75
[2019-09-29 16:11] VITALS: BP 123/73
--- NOTE | 2019-09-29 18:05 | NUR ---
ASSUMED PATIENT CARE AT 0700. A/O X4. ON BED REST. LEFT SIDE FLAAANK PAIN. PAIN MED GIVEN NEED. WILL HAVE PEG TUBE OUT TOMOORROW BY IR. AFEBRILE. SLOWLY TOWARDS POC GOALS.
[2019-09-29 19:52] VITALS: BP 108/76
--- NOTE | 2019-09-30 02:43 | NUR ---
ASSUMED PT CARE AROUND 1930. AXOX4. CALLS PROPERLY FOR HELP. PAIN MANAGED PER MD ORDER. NO S/S ACUTE DISTRESS NOTED OR REPORTED AT THIS TIME. WILL CONT TO MONITOR FOR ANY CHANGES IN CONDITION.
[2019-09-30 04:46] VITALS: BP 61/70; BP 91/70
[2019-09-30 07:48] VITALS: BP 103/77
--- NOTE | 2019-09-30 08:08 | HC ---
[facility] [place] [address] CONSULTATION Name: BAIRON MOTA Room #: 463-P ADM IN M.R.#: [id number] Admission: 09/24/19 Attend Phys: Amadeo Wei MD Discharge: Date of : 63 Report #: [id number] THIS REPORT FOR: cc: Theodore Faulkner MD, Srinath MD Althoff,Deyvi Bear MD ~ CC: Amadeo Faulkner DATE OF SERVICE: 09/26/2019 CHIEF COMPLAINT: Cellulitis and intertrigo to the abdominal wall. HISTORY OF PRESENT ILLNESS: This is a 54-year-old morbidly obese male patient who was admitted to the hospital with worsening cellulitis of the abdominal wall. The patient has a history of lung cancer and previous tracheostomy as well as type 2 diabetes mellitus, hypertension and hypothyroidism. He was living at a rehab facility and has worsening cellulitis to his abdominal wall. He states he has done well in the past when he has been actively diuresed. He has significant pain in his left lower abdominal wall region at this time. ALLERGIES: DILTIAZEM AND LEVOFLOXACIN. MEDICATIONS: Include carvedilol, prednisone, Eliquis, buspirone, furosemide, polyethylene glycol, omeprazole, metoclopramide, acetaminophen and insulin. PAST MEDICAL HISTORY: Positive for history of chronic left foot pain, COPD, congestive heart failure, anxiety, hypothyroidism, depression, hypercapnic hypoxic respiratory failure, pneumonia, status post PEG tube on 08/05/2019, tracheostomy on 08/05/2019, congenital renal failure, sleep apnea, atrial fibrillation, hypertension, type 2 diabetes mellitus, super morbid obesity, history of lung cancer. SOCIAL HISTORY: The patient admits to occasional alcohol use. He is not a smoker. FAMILY HISTORY: Noncontributory. REVIEW OF SYSTEMS: CONSTITUTIONAL: The patient does complain of chills. Denies fever. Denies weight loss. EYES: The patient denies visual changes, redness, or drainage. ENT: The patient denies earache, nasal drainage, sore throat. He does have tracheostomy site that is healing at present, he states he has been cleaning it with alcohol and covering it with a paper tape at home. CARDIOVASCULAR: The patient denies chest pain or palpitations or diaphoresis. [address] [address] CONSULTATION Name: BAIRON MOTA Room #: 463-P [facility] IN M.R.#: [id number] Admission: 09/24/19 Attend Phys: Amadeo Wei MD Discharge: Date of : 63 Report #: [id number] PULMONARY: The patient denies cough or shortness of breath at present, but states he uses a Trilogy to assist with his respiratory failure. GASTROINTESTINAL: The patient complains of abdominal wall pain on the left side as well as drainage. Denies nausea or vomiting at present. ORTHOPEDIC: The patient complains of chronic pain in his left lower extremity. NEUROLOGIC: The patient denies focal weakness, numbness, tingling. Other systems in a 14-point review of systems are negative. PHYSICAL EXAMINATION: VITAL SIGNS: At this time include temperature 37.1, pulse 53, respiratory rate 18, blood pressure 127/72. GENERAL: This is a chronically ill-appearing male patient who appears to be in moderate discomfort. HEENT: Head normocephalic. Nose and throat are clear. NECK: Demonstrates tracheostomy site in the midline that appears to be relatively small. There is still a small area that remains open. Slight amount of drainage is noted. LUNGS: Diminished. HEART: Distant. ABDOMEN: Obese. There is tenderness and redness to the abdominal wall, especially to the left of the midline. The lower abdominal skin fold shows some evidence of intertrigo as well as cellulitis and likely lymphedema to this area as well. EXTREMITIES: Lower extremities show moderate lower extremity edema. No open ulcerations. NEUROLOGIC: The patient does move all extremities symmetrically. LABORATORY DATA: Include sodium 142, potassium 3.2, chloride 103, CO2 32, BUN 14, creatinine 0.9, glucose 126. White blood cell count 6.2 with hemoglobin 9.6. CLINICAL IMPRESSION: 1. Cellulitis to the left abdominal wall and pannus. 2. Intertrigo to the left abdominal wall. 3. Super morbid obesity. 4. Hypothyroidism. 5. Type 2 diabetes mellitus. 6. Chronic respiratory failure. 7. Recent tracheostomy due to respiratory failure. RECOMMENDATIONS: At this point in time, we will recommend Lotrimin powder spray. We will recommend InterDry Ag alone to the abdominal folds. The patient is insistent that he have Lotrimin powder spray, which he has supplied from home. I think this is a reasonable compromise. We will recommend low air loss mattress, IV antibiotics and aggressive diuresis. Check thyroid function studies and make sure that we are to turning and repositioning in order to [facility] [address] [place] [address] CONSULTATION Name: BAIRON MOTA Room #: 463-P ADM IN Jude.#: [id number] Admission: 09/24/19 Attend Phys: Amadeo Wei MD Discharge: Date of : 63 Report #: [id number] prevent any development of pressure ulceration. I appreciate being asked to see the patient in consultation. <ELECTRONICALLY SIGNED> By: Deyvi Gonsalez MD 09/30/19 [id number] 00 Deyvi Gonsalez MD /nt
--- NOTE | 2019-09-30 13:57 | NUR ---
PT HAVING PEG TUBE REMOVED THIS DAY. CARE TEAM INDICATED WE ARE AWAITING ID RECS AND DURATION. CM FAXED CLINICAL UPDATED TO ELIANA AT [facility]. CM TO FOLLOW INDICATED WITH DC PLANNING.
[2019-09-30 16:48] VITALS: BP 138/96
[2019-09-30 19:10] VITALS: BP 97/64
--- NOTE | 2019-09-30 19:58 | NUR ---
Assumed pt care at 7am.Pt in bed resting with cpap on and o2 at 3lnc. Assessment completed.vss.Pt was npo for procedure till after lunch.Medicated pt with both iv and po pain med .Pt was very upset when returned from radiology this afternoon without completing procedure due to weight size. Dr Wei notified,order noted.Pt informed about possible going to operating room in am for peg tube removal.Pt resumed diet for dinner.Report off to rosita hernandez.
--- NOTE | 2019-10-01 04:02 | NUR ---
ASSUMED PT CARE AROUND 1930. AXOX3. FRUSTRATED AND IRRITABLE. NO S/S ACUTE DISTRESS NOTED OR REPORTED AT THIS TIME. WILL CONT TO MONITOR FOR ANY CHANGES IN CONDITION.
[2019-10-01 04:25] VITALS: BP 111/76
[2019-10-01 06:14] LABS: ABSOLUTE NEUTROPHILS 4.1 thou/uL (1.4-8.2); BASOPHILS 1.4 % (0.0-2.0); EOSINOPHILS 4.6 % (0.0-3.0); HEMOGLOBIN 9.8 gm/dL (14.0-18.0); LYMPHOCYTES 14.2 % (24.0-44.0); MCH 27.9 pg (26.0-34.0); MCHC 32.7 g/dL (28.0-37.0); MCV 85.4 fL (80.0-100.0); MONOCYTES 8.1 % (1.0-8.0); PLATELET COUNT 145 thou/uL (150-400); POLYS 71.7 % (36.0-66.0); RBC 3.51 mil/uL (4.50-6.00); RDW 18.6 % (10.5-14.5); WBC 5.7 thou/uL (4.0-11.0)
[2019-10-01 06:31] LABS: CALCIUM 8.5 mg/dL (8.5-10.1); MAGNESIUM 2.1 mg/dL (1.8-2.4); POTASSIUM 3.3 mmol/L (3.5-5.1)
[2019-10-01 07:38] LABS: ANISOCYTOSIS 1+; PLATELET ESTIMATE SLIGHTLY DECREASED
[2019-10-01 08:08] VITALS: BP 100/68
--- NOTE | 2019-10-01 14:53 | NUR ---
CM ATTEMPTED PT TO PT IS HIS ROOM HERE THIS AFTERNOON AND ON HIS CELL AT TO DISCUSS UPCOMING DC PLANNING. CM LEFT VM ON CELL PHONE. CM TO ATTEMPT TO CONTACT PT. PT HAD PEG REMOVED THIS DAY. AWAITING ID RECS. CM SPOKE NIKIA MONROY AT [facility] THIS AM SHE RECEIVED CLINICAL UPDATED AND INDICATED THAT THEY NEED COVID TEST DONE WITH IN 72HRS OF ADMIT AND ASKED ABOUT POSSILE IV ABX NEEDS THEY CAN BE EXPENSIVE AT TIMES. CM INDICATED THAT WE WERE WAITING ON ID RECS. CM TO FOLLOW INDICATED WITH DC PLANNING.
[2019-10-01 17:07] VITALS: BP 111/92
--- NOTE | 2019-10-01 17:55 | NUR ---
ASSESSMENT DOCUMENTED. VSS. AFIB/VPACED ON THE MONITOR. PEG TUBE REMOVED AT BEDSIDE BY DR. COLEY/SURGERY. PT COOPERATIVE AND PLEASANT DURING SHIFT. PT RESTING IN BED WITH CALL LIGHT IN REACH. WILL CONTINUE TO MONITOR.
[2019-10-01 19:42] VITALS: BP 108/81
--- NOTE | 2019-10-02 04:50 | NUR ---
Pt. has rested very little during the night when checked on during frequent rounds. He c/o chronic left leg and abdominal pain and pain meds given (see emar) with some relief noted. Pt. can be irritable at times and demanding.
--- NOTE | 2019-10-02 10:17 | NUR ---
CM FAXED CLINICAL UPDATE TO ELIANA AT [facility] THIS AM. LOOKS LIKE ID ANTICIPATES SWITCHING PT TO ORAL ABX UPON DC. CM TO FOLLOW INDICATED WITH DC PLANNING.
--- NOTE | 2019-10-02 12:00 | NUR ---
Nutrition: Pt seen for weekly follow up. He had PEG tube removed just yesterday, 09/30, as he was no longer using. Eats everything orally. Meals not being recorded in recent days, but on interview, pt reports eating well. RD encouraged 1-2 rich protein sources each meal and identified food sources. Recent provider note stressed pt drastically needing to change health and lose wt. RD presented weight loss topic - pt but declined any interest in hearing nutrition suggestions. BGs staying well controlled, 89-109 mg/dl all day yesterday, 132 mg/dl fasting today. Continues on SSI and Lasix. Pt is returning to nursing/rehab facility soon. Keep as low nutrition risk.
[2019-10-02 14:00] VITALS: BP 122/78
--- NOTE | 2019-10-02 14:21 | NUR ---
PT CARE TAKEN OVER AT 0700, ALERT AND ORIENTED, CAN BE IRRITATED AT TIMES. PT DENIES CHEST PAIN, NAUSEA AND VOMITING. PT HAS A TRILOGY HE WEARS AT NIGHT TIMES AND PRN DURING THE DAY. PT COMPLAINS OF LEFT LEG AN D ABD PAIN, MEDICATED PER ORDER. DENIES ANY NEEDS FRANCISCO, CALL LIGHT AND TABLE IN REACH. BED AT LOWEST LEVEL WITH ALARM ON. WILL CONTINUE TO MONITOR.
[2019-10-02 20:48] VITALS: BP 85/43
--- NOTE | 2019-10-03 04:38 | NUR ---
Pt. rested quietly at intervals during the night when checked on during frequent rounds. He c/o chronic pain to his legs and abdomen. Pt. given pain meds (see emar) with some relief voiced.
[2019-10-03 06:58] VITALS: BP 106/69
[2019-10-03 09:34] VITALS: BP 106/69
[2019-10-03] MEDS ORDERED: KEFLEX500 M2 PO (12:29)
[2019-10-03] MEDS ORDERED: PERCOCET 10-321 EACH PO (12:29)
[2019-10-03] MEDS ORDERED: K-DUR 20 MEQ T20 MEQ PO (12:29)
[2019-10-03] MEDS ORDERED: LASIX 40 MG TAB40 MG PO (12:29)
--- NOTE | 2019-10-03 16:07 | NUR ---
PT DISCHARGING TODAY TO [facility] ORDERS/SUMMARY FAXED TO FACILITY. TRANSPORT ARRANGED WITH [employer] BY [facility] TRIP #[id number] THEY WILL VISUAL DESIGN LEAD BETWEEN [phone]. NOTIFIED UNIT AND PT WILL NOTIFY HIS FAMILY.
--- NOTE | 2019-10-03 16:27 | NUR ---
CARE TEAM INDICATED PT IS MEDICALLY STABLE TO DC BACK TO [facility] THIS DAY. CHART COPY ORDERED. ORDERS FAXED. CM HAD TO [facility] AND PT WITH MEASUREMENTS OF HIS BED HERE AT AT FACILITY TO CONFIRM IT WAS TO PT'S SATISFACTION. CM SPOKE WITH PT'S MOTHER WHO WILL TAX ACCOUNTANT HIS HOME TILOGY AND PERSONAL ITEMS TO TAKE TO [facility] IT IS HOPED THAT SHE WILL ARRIVE BEFORE 5:00 THIS EVENING. CM NOTIFIED PHARMACY OPERATIONS MANAGER THAT SHE WILL BE ARRIVING CLOSE TO 5. [facility] ARRANGED BETWEEN [phone]. REPORT TO BE CALLED TO . NO OTHER CM INTERVETNION INDICATED. CASE CLOSED.
--- NOTE | 2019-10-03 19:23 | NUR ---
PT IS A&OX3, PT IS CONTINUING IV ABX AND PAIN MANAGEMENT , PT'S VS ARE STABLE,PT HAS DISCHARGED TO SNF AT 1800PM, RN HAS GIVING REPORTED. PT'S FAMILY STAY AT PT'S BEDSIDE.
== END 2019-10-03 18:18 | DRG 871 ==
LOC: ER 18:15 → EROBS 19:32 → 4W 19:32
PROVIDERS: Internal Medicine Infectious Disease; Nurse Practitioner Family; Physician Assistant; ADMIT Internal Medicine; ATTEND Internal Medicine
PROC: 5A09357 Assistance with Respiratory Ventilation, Less than 24 Consecutive Hours, Continuous Positive Airway Pressure (ICD-10-PCS; principal; 2019-09-25)
PROC: 5A09357 Assistance with Respiratory Ventilation, Less than 24 Consecutive Hours, Continuous Positive Airway Pressure (ICD-10-PCS; 2019-09-26)
PROC: 5A09357 Assistance with Respiratory Ventilation, Less than 24 Consecutive Hours, Continuous Positive Airway Pressure (ICD-10-PCS; 2019-09-27)
PROC: 5A09357 Assistance with Respiratory Ventilation, Less than 24 Consecutive Hours, Continuous Positive Airway Pressure (ICD-10-PCS; 2019-09-28)
PROC: 5A09357 Assistance with Respiratory Ventilation, Less than 24 Consecutive Hours, Continuous Positive Airway Pressure (ICD-10-PCS; 2019-09-29)
PROC: 5A09357 Assistance with Respiratory Ventilation, Less than 24 Consecutive Hours, Continuous Positive Airway Pressure (ICD-10-PCS; 2019-09-30)
PROC: 0DP6XUZ Removal of Feeding Device from Stomach, External Approach (ICD-10-PCS; 2019-10-01)
PROC: 5A09357 Assistance with Respiratory Ventilation, Less than 24 Consecutive Hours, Continuous Positive Airway Pressure (ICD-10-PCS; 2019-10-01)
PROC: 5A09357 Assistance with Respiratory Ventilation, Less than 24 Consecutive Hours, Continuous Positive Airway Pressure (ICD-10-PCS; 2019-10-02)
DX: A41.9 Sepsis, unspecified organism (principal); K65.1 Peritoneal abscess; E43 Unspecified severe protein-calorie malnutrition; J18.9 Pneumonia, unspecified organism; J96.21 Acute and chronic respiratory failure with hypoxia; L03.311 Cellulitis of abdominal wall; D68.59 Other primary thrombophilia; Z68.45 Body mass index [BMI] 70 or greater, adult; I50.40 Unspecified combined systolic (congestive) and diastolic (congestive) heart failure; J44.0 Chronic obstructive pulmonary disease with (acute) lower respiratory infection; R53.81 Other malaise; E66.01 Morbid (severe) obesity due to excess calories; F41.9 Anxiety disorder, unspecified; E03.9 Hypothyroidism, unspecified; K21.9 Gastro-esophageal reflux disease without esophagitis; L30.4 Erythema intertrigo; I48.0 Paroxysmal atrial fibrillation; I49.5 Sick sinus syndrome; D64.9 Anemia, unspecified; Z79.891 Long term (current) use of opiate analgesic; I89.0 Lymphedema, not elsewhere classified; I11.0 Hypertensive heart disease with heart failure; Z20.828 Contact with and (suspected) exposure to other viral communicable diseases; M79.3 Panniculitis, unspecified; F32.9 Major depressive disorder, single episode, unspecified; E11.9 Type 2 diabetes mellitus without complications; Z86.711 Personal history of pulmonary embolism; G47.33 Obstructive sleep apnea (adult) (pediatric); Z88.8 Allergy status to other drugs, medicaments and biological substances; Z71.3 Dietary counseling and surveillance; Z86.718 Personal history of other venous thrombosis and embolism; Z95.828 Presence of other vascular implants and grafts; Z85.118 Personal history of other malignant neoplasm of bronchus and lung; Z88.1 Allergy status to other antibiotic agents; Z93.1 Gastrostomy status; Z95.0 Presence of cardiac pacemaker; Z93.0 Tracheostomy status
CPT/HCPCS: 10040; 10045